=== PATIENT | male | born 1970 | race Two or more races ===

== ENCOUNTER 2020-12-06 04:03 | Inpatient (IN) | payer BC, OTHER ==
[~2020-12-06] VITALS: Ht 170.2 cm; Wt 69.4 kg
[2020-12-06 04:40] VITALS: BP 136/106
[2020-12-06] MEDS ORDERED: ENALAPRILAT 1.25 MG/ML-1ML VIAL IV ONE (04:45)
[2020-12-06] MEDS ORDERED: NITROGLYCERIN 0.4MG/HR TOPICAL PATCH TD ONE (04:45)
[2020-12-06 04:54] LABS: Basophils # (auto) 0.1 10 ^3/uL (0-0.2); Basophils % (auto) 1.1 % (0.0-2.0); Eosinophils # (auto) 0.5 10 ^3/uL (0-0.8); Hematocrit 32.5 % (41.0-53.0); Hemoglobin 10.2 g/dL (13.5-17.5); Monocytes # (auto) 0.7 10 ^3/uL (0-1.3)
[2020-12-06 04:56] LABS: Eosinophils % (auto) 3.6 % (0.0-7.0); Lymphocytes # (auto) 5.5 10 ^3/uL (0.4-5.4); Lymphocytes % (auto) 41.2 % (10.0-50.0); Mean Corpuscular Hemoglobin 26.1 pg (28.0-32.0); Mean Corpuscular Hgb Conc. 31.5 g/dL (32.0-36.0); Mean Corpuscular Volume 82.9 fL (80.0-100.0); Monocytes % (auto) 5.2 % (0.0-12.0); Neutrophils # (auto) 6.6 10 ^3/uL (1.6-8.6); Neutrophils % (auto) 48.9 % (37.0-80.0); Nucleated Red Blood Cells % 0.1 %; Platelet Count (auto) 295 10^3/uL (140-450); Red Blood Cells 3.92 10^6/uL (4.5-5.90); Red Cell Distribution Width 20.4 % (11.8-14.3); White Blood Cell 13.4 10^3/uL (4.4-10.8)
[2020-12-06 05:11] LABS: Anion Gap 8 (5-15); Blood Urea Nitrogen 32 mg/dL (7-18); Calcium 8.5 mg/dL (8.5-10.1); Carbon Dioxide 18 mmol/L (21-32); Chloride 111 mmol/L (98-107); Glucose 253 mg/dL (74-106); Magnesium 2.5 mg/dL (1.6-2.6); Potassium 5.5 mmol/L (3.5-5.1); Sodium 137 mmol/L (136-145)
[2020-12-06 05:16] LABS: Alanine Aminotransferase 24 U/L (16-61); Alkaline Phosphatase 74 U/L (45-117); Aspartate Aminotransferase 16 U/L (15-37); BUN/Creatinine Ratio 18.2; Bilirubin, Total 0.4 mg/dL (0.2-1.0); GFR African American 53 mL/min; GFR Non-African American 43 mL/min
[2020-12-06] MEDS ORDERED: SODIUM BICARBONATE 8.4 % INJ 50ML VIAL IV ONE ×2 (06:30→11:30)
[2020-12-06] MEDS ORDERED: InsuLIN REG 1unit/0.01ml Soln (100units/ml) IV ONE (06:30)
[2020-12-06] MEDS ORDERED: DEXTROSE (50%) 50ML SYRG IV ONE (06:30)
[2020-12-06] MEDS ORDERED: ACETAMINOPHEN 500 MG TAB PO PRN (09:30)
[2020-12-06] MEDS ORDERED: DEXTROSE (50%) 50ML SYRG IV PRN (09:30)
[2020-12-06] MEDS ORDERED: NITROGLYCERIN 0.4 MG SL TAB SL PRN (09:30)
[2020-12-06] MEDS ORDERED: LACTULOSE 20Gm/30ML SOLN PO PRN (09:30)
[2020-12-06] MEDS ORDERED: PROMETHAZINE HCL 25 MG/ML 1ML IV PRN (09:30)
[2020-12-06] MEDS ORDERED: MORPHINE SULF INJ 2 MG/ML SYRINGE 1ML IV PRN (09:30)
[2020-12-06] MEDS ORDERED: POTASSIUM CHL 20 Meq TABLET PO SCH (10:00)
[2020-12-06] MEDS ORDERED: FUROSEMIDE 40 MG/4 ML VIAL IV SCH (10:00)
[2020-12-06] MEDS ORDERED: ENALAPRIL MALEATE 2.5 MG TAB PO SCH (10:00)
[2020-12-06 10:19] LABS: Urine Bacteria NONE SEEN /hpf (None Seen); Urine Blood Negative /uL (Negative); Urine Specific Gravity 1.013 (1.001-1.035); Urine WBC 33 /hpf (0 - 3)
[2020-12-06] MEDS: FUROSEMIDE 40 MG/4 ML VIAL IV SCH ×2 (10:25→18:44)
[2020-12-06] MEDS: ASPirin 81 mg TAB PO SCH (10:26)
[2020-12-06] MEDS: CARVEDILOL 3.125 MG TAB PO SCH ×2 (10:26→21:58)
[2020-12-06] MEDS: ENOXAPARIN SOD 40 MG/0.4 ML SYRINGE SC SCH (10:27)
[2020-12-06] MEDS: NITROGLYCERIN 0.2MG/HR TOPICAL PATCH TD SCH (10:37)
[2020-12-06] MEDS ORDERED: cefTRIAXone 1GM/50ML D5W 50 ML IV ONE (11:00)
[2020-12-06] MEDS ORDERED: SODIUM BICARBONATE 50ML VIAL 50 ML in SOD CHL 0.45% 1,000 ML IV SCH (11:15)
[2020-12-06 11:22] LABS: Creatinine, Urine 51 mg/dL (30.0-125.0); Protein, Urine 61.4 mg/dL (0.0-11.9); Sodium Urine 57 mmol/L (40-220)
[2020-12-06] MEDS: InsuLIN REG 1unit/0.01ml Soln (100units/ml) SC SCH ×3 (11:30→21:57)
[2020-12-06] MEDS: ACCU-CHEK COMFORT CURVE STRIP VI SCH ×3 (11:30→21:57)
[2020-12-06] MEDS: SODIUM CHLOR 0.9% PF (SALINE LOCK) 10ML VIAL/SYR IV SCH ×2 (14:02→21:01)
[2020-12-06] MEDS ORDERED: TAMSULOSIN HYDROCHLORIDE 0.4 MG CAP PO ONE (16:45)
[2020-12-06] MEDS ORDERED: FLU220IH PO (17:11)
[2020-12-06] MEDS ORDERED: CARV12.544 PO (17:11)
[2020-12-06] MEDS ORDERED: MEGE20TA5 PO (17:45)
[2020-12-06] MEDS ORDERED: NIFE1TAB30 PO (17:45)
[2020-12-06] MEDS ORDERED: SEVE800T PO (17:45)
[2020-12-06] MEDS ORDERED: FURO1TAB33 PO (17:45)
[2020-12-06] MEDS ORDERED: SODI650T PO (17:45)
[2020-12-06] MEDS ORDERED: METO5TAB67 PO (17:45)
[2020-12-06] MEDS ORDERED: MIRT1TAB38 PO (17:45)
[2020-12-06] MEDS ORDERED: FUROSEMIDE 40 MG/4 ML VIAL IV ONE (20:30)
[2020-12-06] MEDS: ALBUTEROL SULF 2.5 MG/0.5ML(0.5%) NEB SOLN NEB PRN (20:38)
[2020-12-06] MEDS ORDERED: GABA100C PO (20:46)
[2020-12-06] MEDS ORDERED: TEMAZEPAM 15 MG CAP PO ONE (21:15)
[2020-12-06] MEDS: GABAPENTIN 100 MG CAP PO SCH (21:57)
[2020-12-07 05:00] VITALS: BP 97/72
[2020-12-07 05:30] LABS: Basophils # (auto) 0.1 10 ^3/uL (0-0.2); Basophils % (auto) 0.8 % (0.0-2.0); Eosinophils # (auto) 0.4 10 ^3/uL (0-0.8); Eosinophils % (auto) 6.2 % (0.0-7.0); Hematocrit 29.9 % (41.0-53.0); Hemoglobin 9.5 g/dL (13.5-17.5); Lymphocytes # (auto) 1.9 10 ^3/uL (0.4-5.4); Lymphocytes % (auto) 27.7 % (10.0-50.0); Mean Corpuscular Hemoglobin 25.8 pg (28.0-32.0); Mean Corpuscular Hgb Conc. 31.6 g/dL (32.0-36.0); Mean Corpuscular Volume 81.6 fL (80.0-100.0); Monocytes # (auto) 0.5 10 ^3/uL (0-1.3); Monocytes % (auto) 7.2 % (0.0-12.0); Neutrophils # (auto) 4.1 10 ^3/uL (1.6-8.6); Neutrophils % (auto) 58.1 % (37.0-80.0); Platelet Count (auto) 222 10^3/uL (140-450); Red Blood Cells 3.67 10^6/uL (4.5-5.90)
[2020-12-07 05:31] LABS: Red Cell Distribution Width 20.2 % (11.8-14.3)
[2020-12-07 06:04] LABS: Chloride 110 mmol/L (98-107); Potassium 4.6 mmol/L (3.5-5.1); Sodium 139 mmol/L (136-145)
[2020-12-07 06:22] LABS: Alanine Aminotransferase 21 U/L (16-61); Alkaline Phosphatase 66 U/L (45-117); Anion Gap 10 (5-15); Aspartate Aminotransferase 10 U/L (15-37); BUN/Creatinine Ratio 21.6; Bilirubin, Total 0.4 mg/dL (0.2-1.0); Blood Urea Nitrogen 38 mg/dL (7-18); Calcium 8.6 mg/dL (8.5-10.1); Carbon Dioxide 19 mmol/L (21-32); Cholesterol 151 mg/dL (< 200); GFR African American 53 mL/min; GFR Non-African American 43 mL/min; Glucose 105 mg/dL (74-106); HDL Cholesterol 29 mg/dL (40-59); LDL Cholesterol 98 mg/dL (< 100); Total Protein 7.8 g/dL (6.4-8.2); Triglycerides 166 mg/dL (< 150)
[2020-12-07] MEDS: SODIUM CHLOR 0.9% PF (SALINE LOCK) 10ML VIAL/SYR IV SCH ×3 (06:40→22:30)
[2020-12-07] MEDS: InsuLIN REG 1unit/0.01ml Soln (100units/ml) SC SCH ×2 (06:40→11:25)
[2020-12-07] MEDS: GABAPENTIN 100 MG CAP PO SCH ×3 (06:40→22:31)
[2020-12-07] MEDS: FUROSEMIDE 40 MG/4 ML VIAL IV SCH ×2 (06:40→18:39)
[2020-12-07] MEDS: ACCU-CHEK COMFORT CURVE STRIP VI SCH ×2 (06:40→11:25)
[2020-12-07 09:00] VITALS: BP 102/77
[2020-12-07] MEDS: NITROGLYCERIN 0.2MG/HR TOPICAL PATCH TD SCH (09:57)
[2020-12-07] MEDS: cefTRIAXone 1GM/50ML D5W 50 ML IV SCH (10:01)
[2020-12-07] MEDS: ENOXAPARIN SOD 40 MG/0.4 ML SYRINGE SC SCH (10:02)
[2020-12-07] MEDS: ASPirin 81 mg TAB PO SCH (10:02)
[2020-12-07] MEDS: CARVEDILOL 3.125 MG TAB PO SCH ×2 (10:02→22:31)
[2020-12-07] MEDS: ALBUTEROL SULF 2.5 MG/0.5ML(0.5%) NEB SOLN NEB PRN (11:43)
[2020-12-07 13:00] VITALS: BP 107/76
[2020-12-07] MEDS: Ensure HIGH Protein Chocolate 8oz Bottle PO SCH ×2 (16:09→17:55)
[2020-12-07 16:55] VITALS: BP 107/74
[2020-12-07 22:00] VITALS: BP 118/80
[2020-12-07] MEDS: ZOLPIDEM TARTRATE 5 MG TAB PO PRN (22:31)
[2020-12-08 05:00] VITALS: BP 109/79
[2020-12-08 05:11] LABS: Basophils # (auto) 0.1 10 ^3/uL (0-0.2); Basophils % (auto) 0.9 % (0.0-2.0); Eosinophils # (auto) 0.5 10 ^3/uL (0-0.8); Monocytes # (auto) 0.5 10 ^3/uL (0-1.3); White Blood Cell 6.1 10^3/uL (4.4-10.8)
[2020-12-08 05:14] LABS: Eosinophils % (auto) 7.5 % (0.0-7.0); Hematocrit 29.1 % (41.0-53.0); Hemoglobin 9.8 g/dL (13.5-17.5); Lymphocytes # (auto) 1.8 10 ^3/uL (0.4-5.4); Lymphocytes % (auto) 29.2 % (10.0-50.0); Mean Corpuscular Hgb Conc. 33.5 g/dL (32.0-36.0); Mean Corpuscular Volume 80.7 fL (80.0-100.0); Monocytes % (auto) 8.3 % (0.0-12.0); Neutrophils # (auto) 3.3 10 ^3/uL (1.6-8.6); Neutrophils % (auto) 54.1 % (37.0-80.0); Platelet Count (auto) 215 10^3/uL (140-450); Red Blood Cells 3.61 10^6/uL (4.5-5.90)
[2020-12-08 05:15] LABS: Red Cell Distribution Width 20.1 % (11.8-14.3)
[2020-12-08 05:23] LABS: Potassium 4.8 mmol/L (3.5-5.1)
[2020-12-08 05:29] LABS: BUN/Creatinine Ratio 26.5
[2020-12-08 05:41] LABS: INR 1.08 (0.9-1.15); Partial Thromboplastin Time 26.2 sec (23.0-31.2)
[2020-12-08] MEDS: SODIUM CHLOR 0.9% PF (SALINE LOCK) 10ML VIAL/SYR IV SCH ×3 (06:03→20:52)
[2020-12-08] MEDS: GABAPENTIN 100 MG CAP PO SCH ×3 (06:03→21:13)
[2020-12-08] MEDS: FUROSEMIDE 40 MG/4 ML VIAL IV SCH ×2 (06:03→18:49)
[2020-12-08] MEDS: Ensure HIGH Protein Chocolate 8oz Bottle PO SCH ×3 (08:14→18:09)
[2020-12-08 08:46] VITALS: BP 101/75
[2020-12-08] MEDS ORDERED: levoFLOXacin 500MG 100 ML IV ONE (09:45)
[2020-12-08] MEDS ORDERED: levoFLOXacin 500MG 100 ML IV SCH (10:00)
[2020-12-08] MEDS: NITROGLYCERIN 0.2MG/HR TOPICAL PATCH TD SCH (10:00)
[2020-12-08] MEDS: ACETYLCYSTEINE 10 %(100MG/ML) SOL 4ML NEB SCH ×4 (10:14→22:13)
[2020-12-08] MEDS: ALBUTEROL SULF 2.5 MG/0.5ML(0.5%) NEB SOLN NEB PRN ×4 (10:15→22:13)
[2020-12-08] MEDS: ASPirin 81 mg TAB PO SCH (10:29)
[2020-12-08] MEDS: POTASSIUM CHL 20 Meq TABLET PO SCH (10:29)
[2020-12-08] MEDS: cefTRIAXone 1GM/50ML D5W 50 ML IV SCH (10:29)
[2020-12-08] MEDS: ENALAPRIL MALEATE 2.5 MG TAB PO SCH (10:30)
[2020-12-08] MEDS: ENOXAPARIN SOD 40 MG/0.4 ML SYRINGE SC SCH (10:30)
[2020-12-08] MEDS: CARVEDILOL 3.125 MG TAB PO SCH ×2 (10:31→21:12)
[2020-12-08 13:00] VITALS: BP 102/76
[2020-12-08] MEDS ORDERED: TAMSULOSIN HYDROCHLORIDE 0.4 MG CAP PO ONE (14:30)
[2020-12-08 16:54] VITALS: BP 101/69
[2020-12-08 17:01] VITALS: BP 101/69
[2020-12-08] MEDS: SODIUM BICARBONATE 50ML VIAL 50 ML in SOD CHL 0.45% 1,000 ML IV SCH ×2 (17:26→20:52)
[2020-12-08] MEDS: ZOLPIDEM TARTRATE 5 MG TAB PO PRN (21:13)
[2020-12-08 22:00] VITALS: BP_SYST 100; BP_SYST 115; BP_DIAS 66; BP_DIAS 68
[2020-12-09] VITALS (7 sets, daily range): BP systolic 91–116; BP diastolic 67–85
[2020-12-09] MEDS: ACETYLCYSTEINE 10 %(100MG/ML) SOL 4ML NEB SCH ×7 (02:00→22:00)
[2020-12-09] MEDS: SODIUM BICARBONATE 50ML VIAL 50 ML in SOD CHL 0.45% 1,000 ML IV SCH ×3 (04:36→17:51)
[2020-12-09] MEDS: FUROSEMIDE 40 MG/4 ML VIAL IV SCH ×2 (05:29→17:51)
[2020-12-09] MEDS: Ensure HIGH Protein Chocolate 8oz Bottle PO SCH ×3 (05:30→18:00)
[2020-12-09] MEDS: SODIUM CHLOR 0.9% PF (SALINE LOCK) 10ML VIAL/SYR IV SCH ×3 (05:30→21:05)
[2020-12-09] MEDS: GABAPENTIN 100 MG CAP PO SCH ×3 (05:30→21:05)
[2020-12-09 05:56] LABS: Basophils # (auto) 0 10 ^3/uL (0-0.2); Basophils % (auto) 0.8 % (0.0-2.0); Eosinophils # (auto) 0.4 10 ^3/uL (0-0.8); Eosinophils % (auto) 6.9 % (0.0-7.0); Hematocrit 28.6 % (41.0-53.0); Hemoglobin 9.2 g/dL (13.5-17.5); Lymphocytes # (auto) 1.7 10 ^3/uL (0.4-5.4); Lymphocytes % (auto) 31.6 % (10.0-50.0); Mean Corpuscular Hemoglobin 27.1 pg (28.0-32.0); Mean Corpuscular Hgb Conc. 32.1 g/dL (32.0-36.0); Mean Corpuscular Volume 84.5 fL (80.0-100.0); Monocytes # (auto) 0.5 10 ^3/uL (0-1.3); Monocytes % (auto) 10.2 % (0.0-12.0); Neutrophils # (auto) 2.7 10 ^3/uL (1.6-8.6); Neutrophils % (auto) 50.5 % (37.0-80.0); Platelet Count (auto) 203 10^3/uL (140-450); Red Blood Cells 3.39 10^6/uL (4.5-5.90); White Blood Cell 5.3 10^3/uL (4.4-10.8)
[2020-12-09] MEDS: ALBUTEROL SULF 2.5 MG/0.5ML(0.5%) NEB SOLN NEB PRN ×5 (05:57→18:00)
[2020-12-09 06:20] LABS: Calcium 8.9 mg/dL (8.5-10.1); Potassium 4.5 mmol/L (3.5-5.1)
[2020-12-09 06:25] LABS: BUN/Creatinine Ratio 31.9
[2020-12-09] MEDS: ENOXAPARIN SOD 40 MG/0.4 ML SYRINGE SC SCH (10:00)
[2020-12-09] MEDS: ASPirin 81 mg TAB PO SCH (10:31)
[2020-12-09] MEDS: NITROGLYCERIN 0.2MG/HR TOPICAL PATCH TD SCH (10:49)
[2020-12-09] MEDS: CARVEDILOL 3.125 MG TAB PO SCH ×2 (10:49→21:05)
[2020-12-09] MEDS: POTASSIUM CHL 20 Meq TABLET PO SCH (10:50)
[2020-12-09] MEDS: ENALAPRIL MALEATE 2.5 MG TAB PO SCH (10:50)
[2020-12-09] MEDS ORDERED: ANGIOMAX 250 MG VIAL IV ONE (13:12)
[2020-12-09] MEDS ORDERED: fentaNYL CITRATE 100 MCG/2 ML VL ONE (13:12)
[2020-12-09] MEDS ORDERED: MIDAZOLAM HCL 1MG/1ML-2 ML VIAL ONE (13:13)
[2020-12-09] MEDS ORDERED: SODIUM CHL 0.9% 50 ML ONE (13:13)
[2020-12-09] MEDS ORDERED: IOHEXOL 350 MG/ML 100ML IJ ONE (13:13)
[2020-12-09] MEDS ORDERED: LIDOCAINE 2%HCL (LOCAL ANESTH.) INJ 20ML MDV ONE (13:13)
[2020-12-09] MEDS ORDERED: IODIXANOL 320MG/ML 100ML BTL IV ONE (14:32)
[2020-12-09] MEDS ORDERED: ASPirin 325 MG TAB ONE (14:41)
[2020-12-09] MEDS ORDERED: TICAGRELOR 90 MG TAB ONE (14:41)
[2020-12-09] MEDS: ZOLPIDEM TARTRATE 5 MG TAB PO PRN (21:05)
[2020-12-09] MEDS: TICAGRELOR 90 MG TAB PO SCH (21:45)
[2020-12-10] MEDS: ACETYLCYSTEINE 10 %(100MG/ML) SOL 4ML NEB SCH ×6 (01:35→22:36)
[2020-12-10] MEDS: ALBUTEROL SULF 2.5 MG/0.5ML(0.5%) NEB SOLN NEB PRN ×6 (01:35→22:36)
[2020-12-10] MEDS: traMADol HCL 50 MG TAB PO PRN (04:10)
[2020-12-10 05:00] VITALS: BP 90/62
[2020-12-10] MEDS: GABAPENTIN 100 MG CAP PO SCH ×3 (06:00→20:42)
[2020-12-10] MEDS: SODIUM CHLOR 0.9% PF (SALINE LOCK) 10ML VIAL/SYR IV SCH ×3 (06:00→20:37)
[2020-12-10] MEDS: FUROSEMIDE 40 MG/4 ML VIAL IV SCH ×2 (06:00→17:30)
[2020-12-10] MEDS: SODIUM BICARBONATE 50ML VIAL 50 ML in SOD CHL 0.45% 1,000 ML IV SCH ×3 (06:16→20:04)
[2020-12-10 06:41] LABS: Basophils # (auto) 0 10 ^3/uL (0-0.2); Basophils % (auto) 0.5 % (0.0-2.0); Eosinophils # (auto) 0.4 10 ^3/uL (0-0.8); Eosinophils % (auto) 5.8 % (0.0-7.0); Hematocrit 24.9 % (41.0-53.0); Hemoglobin 8.1 g/dL (13.5-17.5); Lymphocytes % (auto) 28.7 % (10.0-50.0); Mean Corpuscular Hemoglobin 26.3 pg (28.0-32.0); Mean Corpuscular Hgb Conc. 32.6 g/dL (32.0-36.0); Mean Corpuscular Volume 80.4 fL (80.0-100.0); Monocytes # (auto) 0.7 10 ^3/uL (0-1.3); Neutrophils # (auto) 3.7 10 ^3/uL (1.6-8.6); Platelet Count (auto) 230 10^3/uL (140-450); Red Cell Distribution Width 19.6 % (11.8-14.3); White Blood Cell 6.8 10^3/uL (4.4-10.8)
[2020-12-10 06:49] LABS: % Iron Saturation 26.9 % (20-55); Calcium 8.7 mg/dL (8.5-10.1); Potassium 4.4 mmol/L (3.5-5.1)
[2020-12-10 06:51] LABS: BUN/Creatinine Ratio 28.2
[2020-12-10] MEDS: Ensure HIGH Protein Chocolate 8oz Bottle PO SCH ×3 (08:30→18:25)
[2020-12-10 09:00] VITALS: BP 96/75
[2020-12-10] MEDS: TICAGRELOR 90 MG TAB PO SCH ×2 (09:56→21:37)
[2020-12-10] MEDS: CARVEDILOL 3.125 MG TAB PO SCH ×2 (09:56→20:42)
[2020-12-10] MEDS: ASPirin 81 mg TAB PO SCH (09:56)
[2020-12-10] MEDS: NITROGLYCERIN 0.2MG/HR TOPICAL PATCH TD SCH (09:57)
[2020-12-10] MEDS: POTASSIUM CHL 20 Meq TABLET PO SCH (09:57)
[2020-12-10] MEDS: ENALAPRIL MALEATE 2.5 MG TAB PO SCH (09:57)
[2020-12-10 13:00] VITALS: BP 101/68
[2020-12-10 17:00] VITALS: BP 112/84
[2020-12-10] MEDS: ZOLPIDEM TARTRATE 5 MG TAB PO PRN (20:48)
[2020-12-10 22:00] VITALS: BP 111/82
[2020-12-10] MEDS ORDERED: LINEZOLID 600MG TABLET PO ONE (22:45)
[2020-12-11] MEDS: ACETYLCYSTEINE 10 %(100MG/ML) SOL 4ML NEB SCH ×6 (02:44→22:47)
[2020-12-11] MEDS: ALBUTEROL SULF 2.5 MG/0.5ML(0.5%) NEB SOLN NEB PRN ×6 (02:44→22:48)
[2020-12-11 05:00] VITALS: BP 127/90
[2020-12-11] MEDS: FUROSEMIDE 40 MG/4 ML VIAL IV SCH ×2 (05:30→17:54)
[2020-12-11] MEDS: SODIUM CHLOR 0.9% PF (SALINE LOCK) 10ML VIAL/SYR IV SCH ×3 (05:30→21:41)
[2020-12-11] MEDS: GABAPENTIN 100 MG CAP PO SCH ×3 (05:30→21:42)
[2020-12-11 06:10] LABS: Basophils # (auto) 0 10 ^3/uL (0-0.2); Basophils % (auto) 0.8 % (0.0-2.0); Eosinophils # (auto) 0.4 10 ^3/uL (0-0.8); Eosinophils % (auto) 7.3 % (0.0-7.0); Hematocrit 28.6 % (41.0-53.0); Hemoglobin 9.4 g/dL (13.5-17.5); Lymphocytes # (auto) 1.6 10 ^3/uL (0.4-5.4); Lymphocytes % (auto) 27.8 % (10.0-50.0); Mean Corpuscular Hemoglobin 27.2 pg (28.0-32.0); Mean Corpuscular Hgb Conc. 32.7 g/dL (32.0-36.0); Mean Corpuscular Volume 83.1 fL (80.0-100.0); Monocytes # (auto) 0.6 10 ^3/uL (0-1.3); Monocytes % (auto) 10.7 % (0.0-12.0); Neutrophils % (auto) 53.4 % (37.0-80.0); Nucleated Red Blood Cells % 0.1 %; Platelet Count (auto) 215 10^3/uL (140-450); Red Blood Cells 3.44 10^6/uL (4.5-5.90); Red Cell Distribution Width 19.6 % (11.8-14.3); White Blood Cell 5.7 10^3/uL (4.4-10.8)
[2020-12-11 06:26] LABS: Calcium 8.6 mg/dL (8.5-10.1); Potassium 4.7 mmol/L (3.5-5.1)
[2020-12-11] MEDS: SODIUM BICARBONATE 50ML VIAL 50 ML in SOD CHL 0.45% 1,000 ML IV SCH ×2 (07:27→15:51)
[2020-12-11 08:59] VITALS: BP 104/78
[2020-12-11] MEDS: NITROGLYCERIN 0.2MG/HR TOPICAL PATCH TD SCH (10:00)
[2020-12-11] MEDS ORDERED: ASPI1CHW15 PO (10:41)
[2020-12-11] MEDS ORDERED: LINE1TAB6 PO (10:41)
[2020-12-11] MEDS ORDERED: ENAL2.5T7 PO (10:41)
[2020-12-11] MEDS ORDERED: LEVO750T64 PO (10:41)
[2020-12-11] MEDS ORDERED: TICA90TA PO (10:41)
[2020-12-11] MEDS: TICAGRELOR 90 MG TAB PO SCH ×2 (10:52→21:41)
[2020-12-11] MEDS: Ensure HIGH Protein Chocolate 8oz Bottle PO SCH ×3 (10:52→18:00)
[2020-12-11] MEDS: ASPirin 81 mg TAB PO SCH (10:52)
[2020-12-11] MEDS: CARVEDILOL 3.125 MG TAB PO SCH ×2 (10:53→21:41)
[2020-12-11] MEDS: POTASSIUM CHL 20 Meq TABLET PO SCH (10:53)
[2020-12-11] MEDS: ENALAPRIL MALEATE 2.5 MG TAB PO SCH (10:54)
[2020-12-11] MEDS: levoFLOXacin 750MG 150 ML IV SCH (10:55)
[2020-12-11] MEDS: LINEZOLID 600MG TABLET PO SCH ×2 (11:50→21:42)
[2020-12-11 13:00] VITALS: BP 110/71
[2020-12-11 13:35] VITALS: BP 110/71
[2020-12-11 17:00] VITALS: BP 118/78
[2020-12-11] MEDS: ZOLPIDEM TARTRATE 5 MG TAB PO PRN (21:53)
[2020-12-11 22:00] VITALS: BP 120/81
[2020-12-11] MEDS ORDERED: TEMAZEPAM 15 MG CAP PO ONE (23:15)
[2020-12-12] VITALS (7 sets, daily range): BP systolic 101–117; BP diastolic 68–85
[2020-12-12] MEDS ORDERED: SODIUM BICARBONATE 8.4 % INJ 50ML VIAL IV ONE (01:26)
[2020-12-12] MEDS: SODIUM BICARBONATE 50ML VIAL 50 ML in SOD CHL 0.45% 1,000 ML IV SCH ×3 (01:46→14:29)
[2020-12-12] MEDS: ACETYLCYSTEINE 10 %(100MG/ML) SOL 4ML NEB SCH ×6 (04:34→22:29)
[2020-12-12] MEDS: GABAPENTIN 100 MG CAP PO SCH ×3 (05:40→22:14)
[2020-12-12] MEDS: SODIUM CHLOR 0.9% PF (SALINE LOCK) 10ML VIAL/SYR IV SCH ×3 (05:40→22:25)
[2020-12-12] MEDS: FUROSEMIDE 40 MG/4 ML VIAL IV SCH ×2 (05:40→18:43)
[2020-12-12] MEDS: ALBUTEROL SULF 2.5 MG/0.5ML(0.5%) NEB SOLN NEB PRN ×5 (06:34→22:29)
[2020-12-12] MEDS: NITROGLYCERIN 0.2MG/HR TOPICAL PATCH TD SCH (10:00)
[2020-12-12] MEDS: ASPirin 81 mg TAB PO SCH (10:21)
[2020-12-12] MEDS: CARVEDILOL 3.125 MG TAB PO SCH ×3 (10:22→22:14)
[2020-12-12] MEDS: ENALAPRIL MALEATE 2.5 MG TAB PO SCH (10:23)
[2020-12-12] MEDS ORDERED: ALBU1.257 IN (10:46)
[2020-12-12] MEDS ORDERED: ALBUAER3 IN (10:46)
[2020-12-12] MEDS ORDERED: IPR002IS HHN (10:46)
[2020-12-12] MEDS: TICAGRELOR 90 MG TAB PO SCH ×2 (11:45→22:14)
[2020-12-12] MEDS: LINEZOLID 600MG TABLET PO SCH ×2 (11:45→22:14)
[2020-12-12] MEDS: POTASSIUM CHL 20 Meq TABLET PO SCH (11:45)
[2020-12-12] MEDS: Ensure HIGH Protein Chocolate 8oz Bottle PO SCH ×3 (11:46→18:44)
[2020-12-12] MEDS: ZOLPIDEM TARTRATE 5 MG TAB PO PRN (22:25)
[2020-12-13] MEDS: SODIUM BICARBONATE 50ML VIAL 50 ML in SOD CHL 0.45% 1,000 ML IV SCH ×2 (01:52→09:51)
[2020-12-13] MEDS: ACETYLCYSTEINE 10 %(100MG/ML) SOL 4ML NEB SCH ×5 (02:00→18:00)
[2020-12-13] MEDS: traMADol HCL 50 MG TAB PO PRN (04:02)
[2020-12-13 05:00] VITALS: BP 105/73
[2020-12-13] MEDS: FUROSEMIDE 40 MG/4 ML VIAL IV SCH ×2 (05:51→18:00)
[2020-12-13] MEDS: SODIUM CHLOR 0.9% PF (SALINE LOCK) 10ML VIAL/SYR IV SCH ×2 (05:52→13:54)
[2020-12-13] MEDS: GABAPENTIN 100 MG CAP PO SCH ×2 (05:52→13:53)
[2020-12-13] MEDS: ALBUTEROL SULF 2.5 MG/0.5ML(0.5%) NEB SOLN NEB PRN ×3 (07:25→14:18)
[2020-12-13] MEDS: Ensure HIGH Protein Chocolate 8oz Bottle PO SCH ×3 (08:39→18:52)
[2020-12-13 09:00] VITALS: BP 93/63
[2020-12-13] MEDS: TICAGRELOR 90 MG TAB PO SCH (09:51)
[2020-12-13] MEDS: ASPirin 81 mg TAB PO SCH (09:52)
[2020-12-13] MEDS: LINEZOLID 600MG TABLET PO SCH (09:52)
[2020-12-13] MEDS: POTASSIUM CHL 20 Meq TABLET PO SCH (09:53)
[2020-12-13] MEDS: levoFLOXacin 750MG 150 ML IV SCH (09:54)
[2020-12-13] MEDS: CARVEDILOL 3.125 MG TAB PO SCH (09:56)
[2020-12-13] MEDS: NITROGLYCERIN 0.2MG/HR TOPICAL PATCH TD SCH (09:57)
[2020-12-13] MEDS ORDERED: DIGOXIN 0.125 MG TAB PO SCH (10:00)
[2020-12-13 12:22] VITALS: BP 104/73
[2020-12-13 12:30] VITALS: BP 94/69
[2020-12-13] MEDS ORDERED: CLOP75TA28 PO (14:53)
[2020-12-13] MEDS ORDERED: ONDA-144 PO (15:33)
[2020-12-13 17:00] VITALS: BP 109/84
== END 2020-12-13 18:40 | disposition home health service (06) | DRG 175 ==
LOC: ER 04:03 → EDBD 04:06 → DOU 09:26 → TELE 11:02 → TELE-CENTR 17:06
PROVIDERS: ADMIT Internal Medicine Pulmonary Disease; ATTEND Internal Medicine Pulmonary Disease
PROC: 027034Z Dilation of Coronary Artery, One Artery with Drug-eluting Intraluminal Device, Percutaneous Approach (ICD-10-PCS; principal; 2020-12-09)
PROC: B211YZZ Fluoroscopy of Multiple Coronary Arteries using Other Contrast (ICD-10-PCS; 2020-12-09)
PROC: 02703ZZ Dilation of Coronary Artery, One Artery, Percutaneous Approach (ICD-10-PCS; 2020-12-09)
DX: I13.0 Hypertensive heart and chronic kidney disease with heart failure and stage 1 through stage 4 chronic kidney disease, or unspecified chronic kidney disease (principal); J96.01 Acute respiratory failure with hypoxia; N17.0 Acute kidney failure with tubular necrosis; J15.212 Pneumonia due to Methicillin resistant Staphylococcus aureus; E87.2 Acidosis; J47.0 Bronchiectasis with acute lower respiratory infection; E87.5 Hyperkalemia; D62 Acute posthemorrhagic anemia; J84.10 Pulmonary fibrosis, unspecified; Z20.822 Contact with and (suspected) exposure to COVID-19; I50.23 Acute on chronic systolic (congestive) heart failure; R73.9 Hyperglycemia, unspecified; N13.2 Hydronephrosis with renal and ureteral calculous obstruction; I25.5 Ischemic cardiomyopathy; N18.9 Chronic kidney disease, unspecified; Z79.51 Long term (current) use of inhaled steroids; Z79.899 Other long term (current) drug therapy; Z86.16 Personal history of COVID-19; Z87.01 Personal history of pneumonia (recurrent); Z87.442 Personal history of urinary calculi; Z87.891 Personal history of nicotine dependence
CPT/HCPCS: 36415; 36600; 71045; 71250; 74176; 76775; 80048; 80053; 80061; 81001; 82306; 82550; 82570; 82607; 82728; 82805; 82962; 83036; 83540; 83550; 83605; 83735; 83880; 84156; 84300; 84484; 85025; 85379; 85610; 85730; 86850; 86900; 86901; 87040; 87070; 87077; 87086; 87186; 87205; 87426; 92928; 93005; 93306; 93454; 93970; 94640; 94660; 96365; 96372; 96375; 97110; 97116; 97530; 99152; 99153; 99291; C1874; C1887; G0378; J0696; J1815; J1956; J2250; Q9967

== ENCOUNTER 2021-06-09 14:24 | Emergency (ER) | payer MEDICAID ==
[~2021-06-09] VITALS: Ht 175.3 cm; Wt 83.9 kg
[~2021-06-09 14:24] MED LIST: ASPI1CHW15 PO; CARV12.544 PO; CLOP75TA28 PO; ENAL2.5T7 PO; GABA300C10 PO; IPR002IS HHN; LEVO750T64 PO; MEGE40TA4 PO; METO5TAB2 PO; ONDA-188 TL; TIZA4TAB7 PO
[2021-06-09 15:07] LABS: Basophils # (auto) 0.1 10 ^3/uL (0-0.2); Basophils % (auto) 0.5 % (0.0-2.0); Eosinophils # (auto) 0.3 10 ^3/uL (0-0.8); Eosinophils % (auto) 1.5 % (0.0-7.0); Hematocrit 37.7 % (41.0-53.0); Hemoglobin 12.4 g/dL (13.5-17.5); Lymphocytes # (auto) 1.4 10 ^3/uL (0.4-5.4); Lymphocytes % (auto) 8.3 % (10.0-50.0); Mean Corpuscular Hemoglobin 27.9 pg (28.0-32.0); Mean Corpuscular Hgb Conc. 32.9 g/dL (32.0-36.0); Mean Corpuscular Volume 84.6 fL (80.0-100.0); Monocytes # (auto) 1.1 10 ^3/uL (0-1.3); Monocytes % (auto) 6.7 % (0.0-12.0); Red Blood Cells 4.46 10^6/uL (4.5-5.90); Red Cell Distribution Width 13.2 % (11.8-14.3); White Blood Cell 16.8 10^3/uL (4.4-10.8)
[2021-06-09 16:30] LABS: Albumin 3.6 g/dL (3.4-5.0); BUN/Creatinine Ratio 19.8; Bilirubin, Total 0.8 mg/dL (0.2-1.0); Calcium 8.4 mg/dL (8.5-10.1); Potassium 4.4 mmol/L (3.5-5.1); Total Protein 7.2 g/dL (6.4-8.2)
[2021-06-09 17:15] LABS: CRP High Sensitivity 8.65 mg/dL (< 0.3)
[2021-06-09 18:07] VITALS: BP 122/88
== END 2021-06-09 18:10 | disposition home or self-care (01) ==
LOC: EDBD 14:24 → ER 14:24
DX: I11.0 Hypertensive heart disease with heart failure (principal); I50.43 Acute on chronic combined systolic (congestive) and diastolic (congestive) heart failure; E78.5 Hyperlipidemia, unspecified; Z20.822 Contact with and (suspected) exposure to COVID-19
CPT/HCPCS: 36415; 71045; 80053; 82728; 85025; 86141; 87426; 93005

== ENCOUNTER 2025-05-02 10:02 | Inpatient (IN) | payer MEDICARE, MEDICAID ==
[~2025-05-02] VITALS: Ht 175.3 cm; Wt 50.9 kg
[~2025-05-02 10:02] MED LIST changes: +ASPI-736 PO; -ASPI1CHW15 PO; +ENAL1TAB42 PO; -ENAL2.5T7 PO; +GABA-1250 PO; -GABA300C10 PO; +LEVO750T40 PO; -LEVO750T64 PO; +TIZA-142 PO; -TIZA4TAB7 PO
--- NOTE | 2025-05-02 10:46 | ED.PDOC ---
General HPI Comments 54-year-old male who presents to the ED for chief complaint of flank pain. Patient states he has been having right sided flank pain for the past three days. Patient states the pain radiates to the right lower quadrant, patient is constant, aching and nature with no associated exacerbating or relieving factors. Patient has associated dysuria but otherwise denies any other symptoms. Patient states he does have history of kidney stone in the past. Patient vitals otherwise stable in the ED. Chief Complaint: Flank Pain Time Seen by MD: 10:44 Reviewed notes: Medications, Allergies Allergies: Coded Allergies: Ibuprofen (Unverified Allergy, Unknown, 01/08/21) Information Source: Patient, Spouse Mode of Arrival: Ambulatory Brought in by: Spouse Past Medical History PAST MEDICAL HISTORY: Denies Surgical History: Denies all surgeries Family History Family History: Reviewed,noncontributory to illness Social History Smoker: Non-Smoker Alcohol: Denies ETOH Use Drugs: Denies Drug Use Lives In: Home Constitutional: denies: chills, diaphoresis, fatigue, fever, malaise, sweats, weakness, others EENTM: denies: blurred vision, double vision, ear bleeding, ear discharge, ear drainage, ear pain, ear ringing, eye pain, eye redness, hearing loss, mouth pain, mouth swelling, nasal discharge, nose bleeding, nose congestion, nose pain, photophobia, tearing, throat pain, throat swelling, voice changes, others Respiratory: denies: cough, hemoptysis, orthopnea, SOB at rest, shortness of breath, SOB with excertion, stridor, wheezing, others Cardiovascular: denies: chest pain, dizzy spells, diaphoresis, Dyspnea on exertion, edema, irregular heart beat, left arm pain, lightheadedness, palpitations, PND, syncope, others Gastrointestinal: reports: abdominal pain; denies: abdomen distended, blood streaked bowels, constipated, diarrhea, dysphagia, difficulty swallowing, hematemesis, melena, nausea, poor appetite, poor fluid intake, rectal bleeding, rectal pain, vomiting, others Genitourinary: reports: flank pain; denies: burning, dysuria, frequency, hematuria, incontinence, penile discharge, penile sore, pain, testicle pain, testicle swelling, urgency, others Neurological: denies: dizziness, fainting, headache, left sided numbness, left sided weakness, numbness, paresthesia, pre-existing deficit, right sided numbness, right sided weakness, seizure, speech problems, tingling, tremors, weakness, others Musculoskeletal: denies: back pain, gout, joint pain, joint swelling, muscle pain, muscle stiffness, neck pain, others Integumetry: denies: bruises, change in color, change in hair/nails, dryness, laceration, lesions, lumps, rash, wounds, others Allergic/Immunocompromised: denies: Difficulty Healing, Frequent Infections, Hives, Itching, others Hematologic/Lymphatic: denies: anemia, blood clots, easy bleeding, easy bruising, swollen glands, others Endocrine: denies: excessive hunger, excessive sweating, excessive thirst, excessive urination, flushing, intolerance to cold, intolerance to heat, unexplained weight gain, unexplained weight loss, others Psychiatric: denies: anxiety, bipolar disorder, depression, hopeless, panic disorder, schizophrenia, sleepless, suicidal, others All Other Systems: Reviewed and Negative Physical Exam General Appearance: Moderate Distress HEENT: Normal ENT Inspection, Pharynx Normal, TMs Normal Neck: Full Range of Motion, Non-Tender, Normal, Normal Inspection Respiratory: Chest Non-Tender, Lungs Clear, No Accessory Muscle Use, No Respir atory Distress, Normal Breath Sounds Cardiovascular: No Edema, No JVD, No Murmur, No Gallop, Normal Peripheral Pulses, Regular Rate/Rhythm Breast Exam: Deferred Gastrointestinal: Distended, No Organomegaly, No Pulsatile Mass, Normal Bowel Sounds, Soft Genitalia: Deferred Pelvic: Deferred Rectal: Deferred Extremities: No calf tenderness, Normal capillary refill, Normal inspection, Normal range of motion, Non-tender, No pedal edema Musculoskeletal : Apperance: Normal Neurologic: Alert, sandblast carver II-XII nml as Tested, No Motor Deficits, Normal Affect, Normal Mood, No Sensory Deficits Cerebellar Function: Normal Reflexes: Normal Skin: Dry, Normal Color, Warm Peripheral Pulses: 3+ Radial (R), 3+ Radial (L) Lymphatic: No Adenopathy Was a procedure done? Was a procedure done?: No Differential Diagnosis Kidney stone (Female): Musculoskeletal pain, Urinary obstruction, Urolithiasis Kidney stone (Male): Pyelonephritis, Strain, Urolithiasis, Urinary tract infection Urinary Problem (Male): Urethritis, UTI Other Differential Diagnosis Gallstones, biliary colic, X-Ray, Labs, Meds, VS Vital Signs Date Time Temp Pulse Resp B/P (MAP) Pulse Ox O2 Delivery O2 Flow Rate FiO2 05/02/25 12:39 72 20 126/64 05/02/25 11:41 62 18 129/84 05/02/25 11:35 62 18 97 Room Air 05/02/25 11:35 98.0 62 18 129/84 (99) 97 98.0 05/02/25 10:03 97.3 79 15 123/78 96 97.3 Lab Test 05/02/25 11:49 05/02/25 11:03 Range/Units Urine Color Light-yellow Yellow Urine Clarity Clear Clear Urine pH 6.0 5.0-9.0 Urine Specific [place] 1.018 1.001-1.035 Urine Protein Trace H Negative Urine Ketones Negative Negative Urine Blood 1+ H Negative /uL Urine Nitrite Negative Negative Urine Bilirubin Negative Negative Urine Urobilinogen Normal Negative mg/dL Urine Leukocyte Esterase Trace Negative /uL Urine RBC 4 0 - 3 /hpf Urine Microscopic WBC 26 H 0-3 /HPF Urine Squamous Epithelial Cells Few <5 /hpf Urine Bacteria None seen None Seen /hpf Urine Glucose 4+ H Normal mg/dL White Blood Count 10.3 4.4-10.8 10^3/uL Red Blood Count 5.07 4.5-5.90 10^6/uL Hemoglobin 14.6 13.5-17.5 g/dL Hematocrit 44.7 41.0-53.0 % Mean Corpuscular Volume 88.0 80.0-100.0 fL Mean Corpuscular Hemoglobin 28.7 28.0-32.0 pg Mean Corpuscular Hemoglobin Concent 32.6 32.0-36.0 g/dL Red Cell Distribution Width 13.9 11.8-14.3 % Platelet Count 188 140-450 10^3/uL Mean Platelet Volume 8.5 6.9-10.8 fL Neutrophils (%) (Auto) 84.0 H 37.0-80.0 % Lymphocytes (%) (Auto) 7.8 L 10.0-50.0 % Monocytes (%) (Auto) 4.9 0.0-12.0 % Eosinophils (%) (Auto) 2.8 0.0-7.0 % Basophils (%) (Auto) 0.5 0.0-2.0 % Neutrophils # (Auto) 8.7 H 1.6-8.6 10 ^3/uL Lymphocytes # (Auto) 0.8 0.4-5.4 10 ^3/uL Monocytes # (Auto) 0.5 0-1.3 10 ^3/uL Eosinophils # (Auto) 0.3 0-0.8 10 ^3/uL Basophils # (Auto) 0 0-0.2 10 ^3/uL Nucleated Red Blood Cells 0.0 % Sodium Level 142 136-145 mmol/L Potassium Level 4.4 3.5-5.1 mmol/L Chloride Level 107 98-107 mmol/L Carbon Dioxide Level 26 20-31 mmol/L Anion Gap 9 5-15 Blood Urea Nitrogen 25 H 9-23 mg/dL Creatinine 1.84 H 0.700-1.30 mg/dL Glomerular Filtration Rate Calc 43 >90 mL/min BUN/Creatinine Ratio 13.6 10.0-20.0 Serum Glucose 233 H 74-106 mg/dL Calcium Level 9.3 8.7-10.4 mg/dL Total Bilirubin 0.8 0.2-1.0 mg/dL Aspartate Amino Transferase (AST) 17 13-40 U/L Alanine Aminotransferase (ALT) 14 7-40 U/L Alkaline Phosphatase 84 46-116 U/L Total Protein 7.8 5.7-8.2 g/dL Albumin 4.2 3.2-4.8 g/dL Current Medications Medications (Trade) Dose Ordered Sig/Andi Route Start Time Stop Time Status Last Admin Ondansetron HCl (Zofran) 4 mg ONCE ONCE IV 05/02/25 11:00 05/02/25 11:01 DC 05/02/25 11:40 Sodium Chloride 1,000 ml @ 1,000 mls/hr Q1H ONCE IVB 05/02/25 11:00 05/02/25 11:59 DC 05/02/25 11:31 Morphine Sulfate 2 mg ONCE ONCE IV 05/02/25 11:00 05/02/25 11:01 DC 05/02/25 11:41 Patient alert. Came in because of abdominal pain. On examination abdomen is distended. Vitals stable. WBC within normal limits. Hemoglobin within normal limits. Has risk factors. Establish intravenous access. Was given fluids. Was given Zofran. CT scan of the abdomen reviewed does show obstructing kidney stone. Was given Flomax. Urology consultation. Explained to the patient. Continue monitoring. Time of 1ST Reevaluation: 11:15 Reevaluation 1ST: Unchanged Patient Education/Counseling: Diagnosis, Treatment Family Education/Counseling: Diagnosis, Treatment SEPSIS Sepsis Screen Date sepsis recognized/suspect: May 02, 2025 Time Sepsis recognized/suspect: 1006 Recent Procedure: No On Antibiotic Therapy: No Respiratory Rate >20: No Heart Rate >90: No Temp<36 C (96.8 F) or >38.3 C: No SBP <90 or MAP <65 mmHG: No New Acute Mental Status Change: No Is the patient on CPAP, BIPAP,: No Physician Orders Ct Ab Pel Wo Con-No Oral Or Iv (05/02/25 10:49) Tamsulosin Hydrochloride (Flomax) (05/02/25 12:45) Vital Signs Date Time Temp Pulse Resp B/P (MAP) Pulse Ox O2 Delivery O2 Flow Rate FiO2 05/02/25 12:39 72 20 126/64 05/02/25 11:41 62 18 129/84 05/02/25 11:35 62 18 97 Room Air 05/02/25 11:35 98.0 62 18 129/84 (99) 97 98.0 05/02/25 10:03 97.3 79 15 123/78 96 97.3 Laboratory Tests Test 05/02/25 11:03 White Blood Count 10.3 10^3/uL (4.4-10.8) Medications Medications Dose Ordered Sig/Andi Route Start Time Stop Time Status Last Admin Dose Admin Morphine Sulfate 2 mg ONCE ONCE IV 05/02/25 11:00 05/02/25 11:01 DC 05/02/25 11:41 Ondansetron HCl 4 mg ONCE ONCE IV 05/02/25 11:00 05/02/25 11:01 DC 05/02/25 11:40 Sodium Chloride 1,000 ml @ 1,000 mls/hr Q1H ONCE IVB 05/02/25 11:00 05/02/25 11:59 DC 05/02/25 11:31 Departure 1 Departure Time of Disposition: 12:20 Impression: Primary Impression: Acute abdominal pain Additional Impression: Kidney stone Disposition: ADMITTED INPATIENT Admit to: Med Surg Condition: Guarded Critical Care Note Critical Care Time?: No Stability Stability form required: No Heart Score Heart Score: Heart Score Response (Comments) Value History N/A 0 EKG N/A 0 Age N/A 0 Risk Factors N/A 0 Troponin N/A 0 Total 0 I personally scribed for ANA PIRES MD ([email or web address]) on 05/02/25 at 10:46. Electronically submitted by Hema Manuel ([facility]). ANA PIRES MD May 02, 2025 10:46
--- NOTE | 2025-05-02 11:25 | DVH ---
Exam: CT CT AB PEL WO CON-NO ORAL OR IV History: colitis. Pain. Comparison Study: None Technique: Multidetector spiral CT of the abdomen was performed from lung bases to pubic symphysis. I maging was performed without IV contrast. Axial, coronal and sagittal multiplanar reformats were obta ined from the axial data set by the technologist. Radiation Dose : 1. Abdomen/Pelvis: CTDIvol 14.09 mGy, DLP 890.72 mGy*cm. Findings: Evaluation of solid organs is limited due to lack of intravenous contrast use. Lung Bases: No acute or significant lung base finding. Normal heart size. No pleural or pericardial effusion. Liver: The liver is normal in size. No focal lesions. Gallbladder and Biliary Tree: Cholelithiasis noted without secondary findings of cholecystitis or willie iary obstruction. Spleen: Unremarkable Pancreas: The pancreas is grossly normal in appearance. Adrenal Glands: Unremarkable Kidneys: Obstructing distal right ureteric calculus just proximal to the UVJ measuring 6 mm resulting in [id number] hydronephrosis and hydroureter. Bladder: Grossly unremarkable for degree of distention. Bowel: The stomach is grossly normal in appearance. Small bowel and colon are normal in caliber and d istribution. The appendix is not visualized; however, no secondary findings of acute appendicitis rama ntified. Ascites: Absent Lymphadenopathy: No mesenteric, retroperitoneal or periportal lymphadenopathy. Abdominal Wall and Mesentery: Unremarkable. Vasculature: The visualized abdominal aorta is normal in size and caliber. Evaluation of abdominal a nd pelvic vessels is limited due to lack of intravenous contrast. Pelvic Organs: Unremarkable Musculoskeletal: No aggressive focal bony lesions, acute fractures or dislocation. IMPRESSION: Obstructing distal right ureteric calculus measuring 6 mm resulting in mild to moderate hydronephrosi s and hydroureter. Radiation optimization: All CT scans at this facility use at least one of these dose optimization fior hniques: automated exposure control mA and/or kV adjustment per patient size (includes targeted exam s where dose is matched to clinical indication) or iterative reconstruction.
[2025-05-02 11:28] LABS: Hematocrit 44.7 % (41.0-53.0); Hemoglobin 14.6 g/dL (13.5-17.5); Mean Corpuscular Hemoglobin 28.7 pg (28.0-32.0); Mean Corpuscular Volume 88.0 fL (80.0-100.0); Nucleated Red Blood Cells % 0.0 %
[2025-05-02] MEDS: SODIUM CHLORIDE 0.9% 1,000 ML IVB ONE (11:31)
[2025-05-02] MEDS: ONDANSETRON HCL 4 MG/2 ML VIAL IV ONE (11:40)
[2025-05-02] MEDS: MORPHINE SULFATE INJ 2 MG/ml SYRG IV ONE (11:41)
[2025-05-02 11:46] LABS: Alanine Aminotransferase 14 U/L (7-40); Albumin 4.2 g/dL (3.2-4.8); Alkaline Phosphatase 84 U/L (46-116); Anion Gap 9 (5-15); BUN/Creatinine Ratio 13.6 (10.0-20.0); Calcium 9.3 mg/dL (8.7-10.4); Carbon Dioxide 26 mmol/L (20-31); Potassium 4.4 mmol/L (3.5-5.1); Sodium 142 mmol/L (136-145); Total Protein 7.8 g/dL (5.7-8.2)
[2025-05-02 11:47] LABS: Bilirubin, Total 0.8 mg/dL (0.2-1.0)
[2025-05-02 11:50] LABS: Blood Urea Nitrogen 25 mg/dL (9-23); Chloride 107 mmol/L (98-107); Glucose 233 mg/dL (74-106)
[2025-05-02 12:42] LABS: Urine Protein, UAD TRACE (Negative)
[2025-05-02] MEDS: TAMSULOSIN HYDROCHLORIDE 0.4 MG CAP PO ONE (13:10)
[2025-05-02] MEDS: KETOROLAC TROMETH 30 MG/ML 1ML VIAL IV ONE (13:14)
--- NOTE | 2025-05-02 14:21 | DVHHPRES ---
History of Present Illness Resident Creating Document: FRACISCO MURPHY RESIDENT History of Present Illness Babak Eaton is a 54-year old male with past medical history of hypertension, CKD who presented to the ER with the chief complaint of right-sided back pain and right-sided abdominal pain. Patient mentions he has had the pain for the last 3 days, on and off, describes it as sharp, 8/10 in intensity, not relieved with pain medication. Pain was associated with nausea and 1 episode of vomiting 2 days back. The patient also had decreased urine output and increased frequency and urgency, but no burning or pain with micturition. Patient also mentions he has a history of kidney stones multiple times in the past. CT abdomen was done which showed Obstructing distal right ureteric calculus measuring 6 mm resulting in mild to moderate hydronephrosis and hydroureter. Past medical history: CKD, hypertension, pacemaker placement, PCI with 2 stents, CKD Past surgical history: Pacemaker placement 4 years ago, PCI with 2 stents placed 4 years ago Social & Personal history: Lives at home with family Smoking: Denies Alcohol: Remote history of occasional consumption Drugs: Denies Allergies: Ibuprofen Cardiovascular: CAD, HTN, [place] Renal/: Chronic renal failure, UTI Smoke: No ALCOHOL: none Drugs: None Lives: with Family Review of Systems Review of Systems Patient seen and examined at bedside. Patient is alert and oriented to time, place person and responding to all questions. Eyes: No Pain, No Vision change, No Conjunctivae inflammation, No Eyelid inflammation, No Redness ENT: No Ear pain, No Ear discharge, No Nose pain, No Nose discharge, No Nose congestion, No Mouth pain, No Mouth swelling, No Throat pain, No Throat swelling Cardiovascular: No Chest Pain, No Palpitations, No Orthopnea, No Paroxysmal No Dyspnea, No Edema, No Lt Headedness Respiratory: No Cough, No Dry, No Shortness of breath, No SOB with exertion, No Wheezing, No Hemoptysis, No Pleuritic Pain, No Sputum Gastrointestinal: No Nausea, No Vomiting, No Abdominal Pain, No Diarrhea, No Constipation, No Melena, No Hematochezia Genitourinary: No Dysuria, No Frequency, No Incontinence, No Hematuria, No Retention Allergies: Coded Allergies: Ibuprofen (Unverified Allergy, Unknown, 01/08/21) Exam Vital Signs Vital Signs Date Time Temp Pulse Resp B/P (MAP) Pulse Ox O2 Delivery O2 Flow Rate FiO2 05/02/25 12:39 72 20 126/64 05/02/25 11:35 97 Room Air 05/02/25 11:35 98.0 98.0 Exam General Appearance: Cooperative. Well developed. Well nourished. NAD Head Exam: Normal inspection Neck Exam: Normal inspection. Non-tender. Normal alignment Pulmonary/Respiratory: Chest non-tender. Clear bilateral breath sounds, no crackles, no wheezing. Cardiovascular/Chest: Regular rate and rhythm. No murmurs. No JVD. Peripheral Pulses: 2+ Radial (R). 2+ Radial (L). 2+ Pedal (R). 2+ Pedal (L) Abdominal Exam: Normal bowel sounds. Soft. normal abdomen, no visible veins, mild tenderness in right flank , No hepatospenomegaly. No masses Ankle Exam: Negative ankle edema Lower extremities: Negative lower extremity edema Neuro/Mental Status: A&O x4. Coherent. Thoughts/Psych: Normal thought pattern. Appropriate mood and affect. Good judgement and insight Skin Exam: Normal inspection. Normal color. Warm. Dry Labs/Xrays Labs Test 05/02/25 11:49 05/02/25 11:03 Range/Units Urine Color Light-yellow Yellow Urine Clarity Clear Clear Urine pH 6.0 5.0-9.0 Urine Specific [place] 1.018 1.001-1.035 Urine Protein Trace H Negative Urine Ketones Negative Negative Urine Blood 1+ H Negative /uL Urine Nitrite Negative Negative Urine Bilirubin Negative Negative Urine Urobilinogen Normal Negative mg/dL Urine Leukocyte Esterase Trace Negative /uL Urine RBC 4 0 - 3 /hpf Urine Microscopic WBC 26 H 0-3 /HPF Urine Squamous Epithelial Cells Few <5 /hpf Urine Bacteria None seen None Seen /hpf Urine Glucose 4+ H Normal mg/dL White Blood Count 10.3 4.4-10.8 10^3/uL Red Blood Count 5.07 4.5-5.90 10^6/uL Hemoglobin 14.6 13.5-17.5 g/dL Hematocrit 44.7 41.0-53.0 % Mean Corpuscular Volume 88.0 80.0-100.0 fL Mean Corpuscular Hemoglobin 28.7 28.0-32.0 pg Mean Corpuscular Hemoglobin Concent 32.6 32.0-36.0 g/dL Red Cell Distribution Width 13.9 11.8-14.3 % Platelet Count 188 140-450 10^3/uL Mean Platelet Volume 8.5 6.9-10.8 fL Neutrophils (%) (Auto) 84.0 H 37.0-80.0 % Lymphocytes (%) (Auto) 7.8 L 10.0-50.0 % Monocytes (%) (Auto) 4.9 0.0-12.0 % Eosinophils (%) (Auto) 2.8 0.0-7.0 % Basophils (%) (Auto) 0.5 0.0-2.0 % Neutrophils # (Auto) 8.7 H 1.6-8.6 10 ^3/uL Lymphocytes # (Auto) 0.8 0.4-5.4 10 ^3/uL Monocytes # (Auto) 0.5 0-1.3 10 ^3/uL Eosinophils # (Auto) 0.3 0-0.8 10 ^3/uL Basophils # (Auto) 0 0-0.2 10 ^3/uL Nucleated Red Blood Cells 0.0 % Sodium Level 142 136-145 mmol/L Potassium Level 4.4 3.5-5.1 mmol/L Chloride Level 107 98-107 mmol/L Carbon Dioxide Level 26 20-31 mmol/L Anion Gap 9 5-15 Blood Urea Nitrogen 25 H 9-23 mg/dL Creatinine 1.84 H 0.700-1.30 mg/dL Glomerular Filtration Rate Calc 43 >90 mL/min BUN/Creatinine Ratio 13.6 10.0-20.0 Serum Glucose 233 H 74-106 mg/dL Calcium Level 9.3 8.7-10.4 mg/dL Total Bilirubin 0.8 0.2-1.0 mg/dL Aspartate Amino Transferase (AST) 17 13-40 U/L Alanine Aminotransferase (ALT) 14 7-40 U/L Alkaline Phosphatase 84 46-116 U/L Total Protein 7.8 5.7-8.2 g/dL Albumin 4.2 3.2-4.8 g/dL SEPSIS Sepsis Screen Date sepsis recognized/suspect: May 02, 2025 Time Sepsis recognized/suspect: 1006 Recent Procedure: No On Antibiotic Therapy: No Respiratory Rate >20: No Heart Rate >90: No Temp<36 C (96.8 F) or >38.3 C: No SBP <90 or MAP <65 mmHG: No New Acute Mental Status Change: No Is the patient on CPAP, BIPAP,: No Physician Orders Ct Ab Pel Wo Con-No Oral Or Iv (05/02/25 10:49) Admit (05/02/25 14:08) Allergies (05/02/25 14:08) Code Status (05/02/25 14:08) Ondansetron Hcl (Zofran) (05/02/25 14:15) Complete Blood Count (05/03/25 04:00) Comprehensive Metabolic Panel (05/03/25 04:00) Npo (Nothing By Mouth) Diet (05/02/25 Dinner) Condition: Unstable (05/02/25 14:08) Enoxaparin Sodium (Lovenox) (05/03/25 10:00) Acetaminophen Tablet (Tylenol Tablet) (05/02/25 14:15) Chest Xray 1 View (05/02/25 14:14) Drug Screen (05/02/25 14:14) Hemoglobin A1c (05/02/25 14:14) Thyroid Stimulating Hormone (05/02/25 14:14) * Urology Consult (05/02/25 14:16) Ceftriaxone 1gm/50ml (Rocephin) (05/03/25 09:00) B-Type Natriuretic Peptide (05/02/25 14:17) Ceftriaxone 1gm/50ml (Rocephin) (05/02/25 14:30) Sodium Chloride 0.9% (05/02/25 14:30) Tamsulosin Hydrochloride (Flomax) (05/02/25 18:00) Vital Signs Date Time Temp Pulse Resp B/P (MAP) Pulse Ox O2 Delivery O2 Flow Rate FiO2 05/02/25 12:39 72 20 126/64 05/02/25 11:41 62 18 129/84 05/02/25 11:35 62 18 97 Room Air 05/02/25 11:35 98.0 62 18 129/84 (99) 97 98.0 05/02/25 10:03 97.3 79 15 123/78 96 97.3 Laboratory Tests Test 05/02/25 11:03 White Blood Count 10.3 10^3/uL (4.4-10.8) Medications Medications Dose Ordered Sig/Andi Route Start Time Stop Time Status Last Admin Dose Admin Ketorolac Tromethamine 30 mg ONCE ONCE IV 05/02/25 12:45 05/02/25 12:46 DC 05/02/25 13:14 30 MG Morphine Sulfate 2 mg ONCE ONCE IV 05/02/25 11:00 05/02/25 11:01 DC 05/02/25 11:41 2 MG Ondansetron HCl 4 mg ONCE ONCE IV 05/02/25 11:00 05/02/25 11:01 DC 05/02/25 11:40 4 MG Sodium Chloride 1,000 ml @ 1,000 mls/hr Q1H ONCE IVB 05/02/25 11:00 05/02/25 11:59 DC 05/02/25 11:31 1,000 MLS/HR Tamsulosin HCl 0.4 mg ONCE ONCE PO 05/02/25 12:45 05/02/25 12:46 DC 05/02/25 13:10 0.4 MG Assessment/Plan Assessment/Plan Acute urinary obstruction with hydronephrosis, likely due to ureteric calculus Acute right flank pain, likely due to above Acute UTI -CT abdomen showed Obstructing distal right ureteric calculus measuring 6 mm resulting in mild to moderate hydronephrosis and hydroureter. -IV fluids at 75ml/hr -urology consult placed -ceftriaxone 1gm iv daily -tamsulosin 0.4mg po qpm ERICA on CKD, stage III -creatinine today is -continue IV fluids -avoid nephrotoxic agents -monitor BNP Prediabetes, with HbA1c 6.3 -patient counselled extensively on healthy lifestyle modifications and diet control -monitor PUD prophylaxis: Protonix 40 mg IV daily DVT prophylaxis: Not indicated Goals of care: Full code, discussed for >23 minutes Plan discussed with patient Plan discussed with Dr Bosch Plan discussed with: Patient, Spouse My Orders Orders - FRACISCO MURPHY RESIDENT Procedure Category Date Status Time Admit ADMIT 05/02/25 Transmitted 14:08 Allergies NELLIE 05/02/25 In Process 14:08 Code Status CODE 05/02/25 Transmitted 14:08 Ondansetron Hcl PHA 05/02/25 Logged (Zofran) 14:15 Complete Blood Count LAB 05/03/25 Verified 04:00 Comprehensive LAB 05/03/25 Verified Metabolic Panel 04:00 Npo (Nothing By DIET 05/02/25 Transmitted Mouth) Diet Dinner Condition: Unstable NELLIE 05/02/25 In Process 14:08 Enoxaparin Sodium PHA 05/03/25 Logged (Lovenox) 10:00 Acetaminophen Tablet PHA 05/02/25 Logged (Tylenol Tablet) 14:15 Chest Xray 1 View XY 05/02/25 Logged 14:14 Drug Screen LAB 05/02/25 Logged 14:14 Hemoglobin A1c LAB 05/02/25 Logged 14:14 Thyroid Stimulating LAB 05/02/25 Logged Hormone 14:14 * Urology Consult CONS 05/02/25 Transmitted 14:16 Ceftriaxone 1gm/50ml PHA 05/03/25 Logged (Rocephin) 09:00 B-Type Natriuretic LAB 05/02/25 Logged Peptide 14:17 Ceftriaxone 1gm/50ml PHA 05/02/25 Logged (Rocephin) 14:30 Sodium Chloride 0.9% PHA 05/02/25 Logged 14:30 Tamsulosin PHA 05/02/25 Logged Hydrochloride (Flomax) 18:00 Date of Service: May 02, 2025 Billing Provider: KACY BOSCH MD Common Visit Codes: 59824-USEHWNS INP/OBS CARE (HIGH) Secondary Visit Codes: 02206-[id number] CARE PLAN 30 MINUTES FRACISCO MURPHY RESIDENT May 02, 2025 14:21 KACY BOSCH MD May 02, 2025 22:56
[2025-05-02] MEDS: SODIUM CHLORIDE 0.9% 1,000 ML IV SCH (14:30)
--- NOTE | 2025-05-02 14:58 | DVH ---
EXAM: XY CHEST XRAY 1 VIEW Indication: sob Technique: Single frontal view of the chest was obtained Comparison: CHEST PORTABLE on DOS: 01/08/21 FINDINGS: Lines and Tubes: Cardiac pacemaker projects over left chest wall. Lungs: No focal consolidation. Pleura: No effusion. No pneumothorax. Cardiomediastinal contours: Unremarkable Bones: No acute osseous abnormality. IMPRESSION: No acute cardiopulmonary disease.
[2025-05-02] MEDS ORDERED: SODIUM CHLORIDE 0.9% 1,000 ML IV ONE (15:15)
[2025-05-02] MEDS: SODIUM CHLORIDE 0.9% 1,000 ML IV ONE (15:34)
--- NOTE | 2025-05-02 18:27 | DVHINCON2 ---
Date of service: May 02, 2025 Referring Physician Hospitalist Reason for Consultation ureteral stone History of Present Illness History Source: Patient, RN Notes, MD Notes Exam Limitations: No limitations HPI 54-year old male with past medical history of hypertension, CKD who presented to the ER with the chief complaint of right-sided back pain and right-sided abdomi nal pain. Patient mentions he has had the pain for the last 3 days, on and off, describes it as sharp, 8/10 in intensity, not relieved with pain medication. Pain was associated with nausea and 1 episode of vomiting 2 days back. The patient also had decreased urine output and increased frequency and urgency, but no burning or pain with micturition. Patient also mentions he has a history of kidney stones multiple times in the past. CT abdomen was done which showed Obstructing distal right ureteric calculus measuring 6 mm resulting in mild to moderate hydronephrosis and hydroureter. Past medical history: CKD, hypertension, pacemaker placement, PCI with 2 stents, CKD Past surgical history: Pacemaker placement 4 years ago, PCI with 2 stents placed 4 years ago Social & Personal history: Lives at home with family Smoking: Denies Alcohol: Remote history of occasional consumption Drugs: Denies Home Meds Reported Medications Aspirin (Aspirin) 325 Mg Tab, 81 MG PO DAILY for 30 Days, MG 05/03/25 Sacubitril-Valsartan (Entresto 97-103 mg) 1 Tab Tab, 1 TAB PO BID, TAB 05/03/25 Cetirizine HCl (Cetirizine HCl) 1 Mg/Ml Syp, 10 MG PO, SYP 05/03/25 Clopidogrel Bisulfate (CLOPIDOGREL) 75 Mg Tab, 75 MG PO DAILY for 30 Days, MG 05/03/25 Atorvastatin Calcium (Lipitor) 20 Mg Tab, 1 TAB PO DAILY, #90 TAB 1 Refill 05/03/25 Allopurinol (Allopurinol) 100 Mg Tab, 100 MG PO DAILY for 30 Days, MG 05/03/25 Dapagliflozin Propanediol (Farxiga) 10 Mg Tab, 10 MG PO, TAB 05/03/25 Bempedoic Acid (Nexletol) 180 Mg Tab, 180 MG PO, TAB 05/03/25 Carvedilol (Carvedilol) 12.5 Mg Tab, 12.5 MG PO Q12HR for 30 Days, MG 05/03/25 Gabapentin (Gabapentin) 300 Mg Cap, 300 MG PO for 30 Days, MG 05/03/25 Past Medical History Cardiac: CAD Past Surgical History: Pacemaker, PTCA Smoker: No Hx (Negative) Alocohol: None Drugs: None Domestic Violence: Neg Review of Systems Gastrointestinal: Abdominal Pain Genitourinary: Pain H&P Exam Vital Signs Vital Signs Date Time Temp Pulse Resp B/P (MAP) Pulse Ox O2 Delivery O2 Flow Rate FiO2 05/02/25 14:20 97.9 79 18 135/52 (79) 98 97.9 05/02/25 11:35 Room Air General Appeara: Well developed, Well nourished, Normal Appearance Eye contact/ Speech: Cooperative, Good eye contact, Normal speech Skin Exam: Normal inspection, Normal color, Warm/dry Labs/Xrays [place] [address] Ph: [phone] DIAGNOSTIC IMAGING Diagnostic Imaging Report : [id number] Signed PATIENT: VANIA ZUNIGA ACCT: [id number] UNIT: [id number] : 1970 LOC: ER ROOM / BED: / AGE / SEX: 54 / M ADM STATUS: REG ER SERVICE 1049 ORDERING PHYSICIAN: ANA PIRES MD PROCEDURE(s): ABPL - CT AB PEL WO CON-NO ORAL OR IV REASON: colitis ORDER NUMBER(s): [id number], ACCESSION NUMBER(s): [id number] Exam: CT CT AB PEL WO CON-NO ORAL OR IV History: colitis. Pain. Comparison Study: None Technique: Multidetector spiral CT of the abdomen was performed from lung bases to pubic symphysis. Imaging was performed without IV contrast. Axial, coronal and sagittal multiplanar reformats were obtained from the axial data set by the technologist. Radiation Dose : 1. Abdomen/Pelvis: CTDIvol 14.09 mGy, DLP 890.72 mGy*cm. Findings: Evaluation of solid organs is limited due to lack of intravenous contrast use. Lung Bases: No acute or significant lung base finding. Normal heart size. No pleural or pericardial effusion. Liver: The liver is normal in size. No focal lesions. Gallbladder and Biliary Tree: Cholelithiasis noted without secondary findings of cholecystitis or biliary obstruction. Spleen: Unremarkable Pancreas: The pancreas is grossly normal in appearance. Adrenal Glands: Unremarkable Kidneys: Obstructing distal right ureteric calculus just proximal to the UVJ measuring 6 mm resulting in [id number] hydronephrosis and hydroureter. Bladder: Grossly unremarkable for degree of distention. Bowel: The stomach is grossly normal in appearance. Small bowel and colon are normal in caliber and distribution. The appendix is not visualized; however, no secondary findings of acute appendicitis identified. Ascites: Absent Lymphadenopathy: No mesenteric, retroperitoneal or periportal lymphadenopathy. Abdominal Wall and Mesentery: Unremarkable. Vasculature: The visualized abdominal aorta is normal in size and caliber. Evaluation of abdominal and pelvic vessels is limited due to lack of intravenous contrast. Pelvic Organs: Unremarkable Musculoskeletal: No aggressive focal bony lesions, acute fractures or dislocation. IMPRESSION: Obstructing distal right ureteric calculus measuring 6 mm resulting in mild to moderate hydronephrosis and hydroureter. Radiation optimization: All CT scans at this facility use at least one of these dose optimization techniques: automated exposure control mA and/or kV adjustment per patient size (includes targeted exams where dose is matched to clinical indication) or iterative reconstruction. ATED BY: ARTURO TIM MD DICTATED DATE/TIME: 05/02/25 112 SIGNED BY: ARTURO TIM MD SIGNED DATE/TIME: 05/02/25 112 CC: Labs Test 05/02/25 11:49 05/02/25 11:03 Range/Units Urine Color Light-yellow Yellow Urine Clarity Clear Clear Urine pH 6.0 5.0-9.0 Urine Specific [place] 1.018 1.001-1.035 Urine Protein Trace H Negative Urine Ketones Negative Negative Urine Blood 1+ H Negative /uL Urine Nitrite Negative Negative Urine Bilirubin Negative Negative Urine Urobilinogen Normal Negative mg/dL Urine Leukocyte Esterase Trace Negative /uL Urine RBC 4 0 - 3 /hpf Urine Microscopic WBC 26 H 0-3 /HPF Urine Squamous Epithelial Cells Few <5 /hpf Urine Bacteria None seen None Seen /hpf Urine Glucose 4+ H Normal mg/dL White Blood Count 10.3 4.4-10.8 10^3/uL Red Blood Count 5.07 4.5-5.90 10^6/uL Hemoglobin 14.6 13.5-17.5 g/dL Hematocrit 44.7 41.0-53.0 % Mean Corpuscular Volume 88.0 80.0-100.0 fL Mean Corpuscular Hemoglobin 28.7 28.0-32.0 pg Mean Corpuscular Hemoglobin Concent 32.6 32.0-36.0 g/dL Red Cell Distribution Width 13.9 11.8-14.3 % Platelet Count 188 140-450 10^3/uL Mean Platelet Volume 8.5 6.9-10.8 fL Neutrophils (%) (Auto) 84.0 H 37.0-80.0 % Lymphocytes (%) (Auto) 7.8 L 10.0-50.0 % Monocytes (%) (Auto) 4.9 0.0-12.0 % Eosinophils (%) (Auto) 2.8 0.0-7.0 % Basophils (%) (Auto) 0.5 0.0-2.0 % Neutrophils # (Auto) 8.7 H 1.6-8.6 10 ^3/uL Lymphocytes # (Auto) 0.8 0.4-5.4 10 ^3/uL Monocytes # (Auto) 0.5 0-1.3 10 ^3/uL Eosinophils # (Auto) 0.3 0-0.8 10 ^3/uL Basophils # (Auto) 0 0-0.2 10 ^3/uL Nucleated Red Blood Cells 0.0 % Sodium Level 142 136-145 mmol/L Potassium Level 4.4 3.5-5.1 mmol/L Chloride Level 107 98-107 mmol/L Carbon Dioxide Level 26 20-31 mmol/L Anion Gap 9 5-15 Blood Urea Nitrogen 25 H 9-23 mg/dL Creatinine 1.84 H 0.700-1.30 mg/dL Glomerular Filtration Rate Calc 43 >90 mL/min BUN/Creatinine Ratio 13.6 10.0-20.0 Serum Glucose 233 H 74-106 mg/dL Hemoglobin A1c 6.3 H <5.7 % A1C Calcium Level 9.3 8.7-10.4 mg/dL Total Bilirubin 0.8 0.2-1.0 mg/dL Aspartate Amino Transferase (AST) 17 13-40 U/L Alanine Aminotransferase (ALT) 14 7-40 U/L Alkaline Phosphatase 84 46-116 U/L B-Type Natriuretic Peptide 109.09 0-100 pg/mL Total Protein 7.8 5.7-8.2 g/dL Albumin 4.2 3.2-4.8 g/dL Thyroid Stimulating Hormone (TSH) 0.97 0.55-4.78 uIU/mL Assessment/Plan Problem List: (1) Hydronephrosis with obstructing calculus Plan expulsive measures pain control renal US to check for jets Plan discussed with: Patient, Other CHARLIE BRITT [employer] May 02, 2025 18:27
[2025-05-02] MEDS: TAMSULOSIN HYDROCHLORIDE 0.4 MG CAP PO SCH (18:41)
[2025-05-02 18:44] VITALS: PULSE 79; RESP 18; O2SAT 98
[2025-05-02 18:52] LABS: INR 1.08 (0.9-1.15); Prothrombin Time 11.4 sec (9.3-11.8)
[2025-05-02 21:00] VITALS: BP 152/93; PULSE 64; RESP 17; TEMP 97.4; O2SAT 94
[2025-05-02 22:01] LABS: Opiate Scree,Urine Neg (NEGATIVE)
[2025-05-02 22:20] LABS: Amphetamine Screen, Urine Neg (NEGATIVE); Barbiturate Scree,Urine Neg (NEGATIVE); Benzodiazephine Screen, Urine Neg (NEGATIVE); Cannabinoid Screen, Urine Neg (NEGATIVE); Cocaine Screen, Urine Neg (NEGATIVE); Phencyclidine Screen, Urine Neg (NEGATIVE)
[2025-05-03] MEDS: ACETAMINOPHEN 325 MG TAB PO PRN (00:22)
[2025-05-03 00:40] VITALS: BP 152/86; PULSE 73; RESP 19; TEMP 98.6; O2SAT 95
[2025-05-03 05:00] VITALS: BP 149/89; PULSE 59; RESP 17; TEMP 97.6; O2SAT 95
[2025-05-03 06:44] LABS: Hematocrit 39.2 % (41.0-53.0); Hemoglobin 13.0 g/dL (13.5-17.5); Mean Corpuscular Hemoglobin 29.1 pg (28.0-32.0); Mean Corpuscular Volume 87.9 fL (80.0-100.0); Nucleated Red Blood Cells % 0.0 %
[2025-05-03 07:04] LABS: Alanine Aminotransferase 20 U/L (7-40); Alkaline Phosphatase 77 U/L (46-116); Anion Gap 11 (5-15); BUN/Creatinine Ratio 17.4 (10.0-20.0); Carbon Dioxide 22 mmol/L (20-31); Potassium 4.5 mmol/L (3.5-5.1); Sodium 145 mmol/L (136-145); Total Protein 6.4 g/dL (5.7-8.2)
[2025-05-03 07:05] LABS: Albumin 3.5 g/dL (3.2-4.8); Bilirubin, Total 0.5 mg/dL (0.2-1.0)
[2025-05-03 07:08] LABS: Blood Urea Nitrogen 29 mg/dL (9-23); Calcium 8.4 mg/dL (8.7-10.4); Chloride 112 mmol/L (98-107); Glucose 131 mg/dL (74-106)
[2025-05-03 08:55] VITALS: BP 135/74; PULSE 60; RESP 20; TEMP 98.4; O2SAT 95
[2025-05-03] MEDS: HYDROcodone-ACET 5/325MG TAB PO PRN (10:08)
[2025-05-03] MEDS: ENOXAPARIN SOD 30 MG/0.3 ML SYRINGE SC SCH (10:12)
[2025-05-03] MEDS: ONDANSETRON HCL 4 MG/2 ML VIAL IV PRN (10:16)
[2025-05-03 12:46] VITALS: BP 145/88; PULSE 64; RESP 19; TEMP 98.3; O2SAT 95
[2025-05-03 16:27] VITALS: BP 167/92; PULSE 80; RESP 18; TEMP 98; O2SAT 98
--- NOTE | 2025-05-03 18:19 | DVH ---
CLINICAL HISTORY: hydronephrosis, check jets TECHNIQUE: Complete ultrasound exam of the kidneys and bladder was performed. COMPARISON: None FINDINGS: The right kidney has normal echogenicity and measures 10 cm. There is no focal parenchymal abnormalit y or evidence for stone. There is moderate hydronephrosis. The left kidney has normal echogenicity and measures 11.9 cm. There is no focal parenchymal abnormal ity or evidence for stone. There is no hydronephrosis. The bladder demonstrates no right ureteral jet. IMPRESSION: Moderate right hydronephrosis with no right ureteral jet seen.
[2025-05-03 21:00] VITALS: BP 144/88; PULSE 60; RESP 18; TEMP 98.4; O2SAT 93
[2025-05-03] MEDS: ATORVASTATIN 20 MG TAB PO SCH (21:45)
[2025-05-03] MEDS: CARVEDILOL 12.5 MG TAB PO SCH (21:45)
[2025-05-03] MEDS: SACUBITRIL-VALSARTAN 24mg/26mg TAB PO SCH (21:45)
[2025-05-04] VITALS (9 sets, daily range): BP systolic 128–164; BP diastolic 77–98; PULSE 60–72; RESP 13–19; TEMP 97.6–98.7; O2SAT 93–99
[2025-05-04 06:33] LABS: Hematocrit 37.7 % (41.0-53.0); Hemoglobin 12.6 g/dL (13.5-17.5); Mean Corpuscular Hemoglobin 29.1 pg (28.0-32.0); Mean Corpuscular Volume 87.1 fL (80.0-100.0); Nucleated Red Blood Cells % 0.0 %
[2025-05-04 07:23] LABS: Anion Gap 9 (5-15)
[2025-05-04 07:28] LABS: Calcium 8.3 mg/dL (8.7-10.4); Carbon Dioxide 22 mmol/L (20-31); Chloride 111 mmol/L (98-107); Potassium 4.4 mmol/L (3.5-5.1); Sodium 142 mmol/L (136-145)
[2025-05-04 07:29] LABS: BUN/Creatinine Ratio 14.0 (10.0-20.0); Glucose 104 mg/dL (74-106)
[2025-05-04 07:30] LABS: Blood Urea Nitrogen 25 mg/dL (9-23)
[2025-05-04] MEDS: CIPROFLOXACIN 400MG/200ML 200 ML IV ONE (08:20)
[2025-05-04] MEDS: IOHEXOL 300 MG/ML 100ML BOTTLE IJ ONE (09:03)
[2025-05-04] MEDS ORDERED: KETAMINE 50mg/ML 1ml syringe ONE (09:15)
[2025-05-04] MEDS ORDERED: fentaNYL CITRATE 100 MCG/2 ML VL ONE (09:15)
[2025-05-04] MEDS ORDERED: ONDANSETRON HCL 4 MG/2 ML VIAL ONE (09:16)
[2025-05-04] MEDS ORDERED: MIDAZOLAM HCL 2MG/2ML 2ml VIAL (1mg/ml) ONE (09:16)
[2025-05-04] MEDS ORDERED: HYDROCORTISONE SOD SUCC 100 MG/2ML INJ VIAL ONE (09:16)
[2025-05-04] MEDS ORDERED: GLYCOPYRROLATE 0.2 MG/ML 1ML VIAL ONE (09:16)
[2025-05-04] MEDS ORDERED: LIDOCAINE 2% (LOCAL ANESTH.) PF 5ml SDV ONE (09:16)
[2025-05-04] MEDS ORDERED: PROPOFOL 10 MG/ML 20 ML IV ONE (09:16)
[2025-05-04] MEDS: ENOXAPARIN SOD 40 MG/0.4 ML SYRINGE SC SCH (10:00)
[2025-05-04] MEDS ORDERED: HYDROmorphone HCL 2 MG/ML VL/or syr IV PRN (10:15)
[2025-05-04] MEDS: ACETAMINOPHEN IV 1000 MG/100ML (10MG/ML) IV ONE (10:26)
[2025-05-04] MEDS: ACETAMINOPHEN IV 100 ML IV ONE (10:28)
--- NOTE | 2025-05-04 10:51 | DVH ---
FLUOROSCOPY TIME: 15 seconds TECHNIQUE: Intraoperative radiographs of the abdomen were obtained. COMPARISON: XY KUB ABDOMEN SINGLE VIEW on DOS: 05/04/25, US KIDNEY on DOS: 05/03/25, CT CT AB PEL WO CON-NO ORAL OR IV on DOS: 05/02/25, CT CHEST ABD PELVIS WO CONTRAS on DOS: 01/10/21 FINDINGS: Refer to intraoperative report for further evaluation. IMPRESSION: Refer to intraoperative report for further evaluation.
[2025-05-04 10:57] LABS: Hepatitis B Surface Antigen Negative (Negative)
--- NOTE | 2025-05-04 11:09 | DVHPNRES ---
Progress Note Date Seen: May 03, 2025 Resident Creating Document: FRACISCO MURPHY RESIDENT Medical Necessity Reason Pt with a Central, PICC or Fol: No Subjective Review of Systems Babak Eaton is a 54-year old male with past medical history of hypertension, CKD who presented to the ER with the chief complaint of right-sided back pain and right-sided abdominal pain. Patient mentions he has had the pain for the last 3 days, on and off, describes it as sharp, 8/10 in intensity, not relieved with pain medication. Pain was associated with nausea and 1 episode of vomiting 2 days back. The patient also had decreased urine output and increased frequency and urgency, but no burning or pain with micturition. Patient also mentions he has a history of kidney stones multiple times in the past. CT abdomen was done which showed Obstructing distal right ureteric calculus measuring 6 mm resulting in mild to moderate hydronephrosis and hydroureter. Past medical history: CKD, hypertension, pacemaker placement, PCI with 2 stents, CKD Past surgical history: Pacemaker placement 4 years ago, PCI with 2 stents placed 4 years ago Social & Personal history: Lives at home with family Smoking: Denies Alcohol: Remote history of occasional consumption Drugs: Denies Allergies: Ibuprofen Cardiovascular: CAD, HTN, [place] Renal/: Chronic renal failure, UTI Smoke: No ALCOHOL: none Drugs: None Lives: with Family Patient seen and examined at bedside. Patient is alert and oriented to time, place person and responding to all questions. Eyes: No Pain, No Vision change, No Conjunctivae inflammation, No Eyelid inflammation, No Redness ENT: No Ear pain, No Ear discharge, No Nose pain, No Nose discharge, No Nose congestion, No Mouth pain, No Mouth swelling, No Throat pain, No Throat swelling Cardiovascular: No Chest Pain, No Palpitations, No Orthopnea, No Paroxysmal No Dyspnea, No Edema, No Lt Headedness Respiratory: No Cough, No Dry, No Shortness of breath, No SOB with exertion, No Wheezing, No Hemoptysis, No Pleuritic Pain, No Sputum Gastrointestinal: No Nausea, No Vomiting, No Abdominal Pain, No Diarrhea, No Constipation, No Melena, No Hematochezia Genitourinary: No Dysuria, No Frequency, No Incontinence, No Hematuria, No Retention Allergies: Coded Allergies: Ibuprofen (Unverified Allergy, Unknown, 01/08/21) 05/03/25- The patient was seen at bedside today. All labs and charts were reviewed. Patient complained of intermittent severe pain in the right flank. [place] was added to the regimen for pain management. Patient has been recommended to strain urine. His home medications were reconciled. We are pending evaluation by Urology. Objective vital signs Vital Sign Date Time Temp Pulse Resp B/P (MAP) Pulse Ox O2 Delivery O2 Flow Rate FiO2 05/03/25 08:55 98.4 60 20 135/74 (94) 95 98.4 05/02/25 20:00 Room Air* 0 21 Total Intake and Output 05/02/25 05/02/25 05/03/25 15:00 23:00 07:00 Intake Total 325 ml Balance 325 ml medications Current Medications Medications Dose Ordered Sig/Andi Route Start Time Stop Time Status Last Admin Dose Admin Ondansetron HCl 4 mg Q4HP PRN IV 05/02/25 14:15 05/03/25 10:16 4 MG Enoxaparin Sodium 30 mg DAILY SC 05/03/25 10:00 05/03/25 10:12 30 MG Acetaminophen 650 mg Q6HP PRN PO 05/02/25 14:15 05/03/25 00:22 650 MG Ceftriaxone Sodium 50 ml @ 100 mls/hr DAILY@09 IV 05/03/25 09:00 05/03/25 09:00 100 MLS/HR Sodium Chloride 1,000 ml @ 75 mls/hr [id number] IV 05/02/25 14:30 05/03/25 05:31 75 MLS/HR Tamsulosin HCl 0.4 mg QPM PO 05/02/25 18:00 05/02/25 18:41 0.4 MG Acetaminophen/ Hydrocodone Bitart 1 tab Q4HPRN PRN PO 05/03/25 09:00 05/03/25 10:08 1 TAB Examination General Appearance: Cooperative. Well developed. Well nourished. NAD Head Exam: Normal inspection Neck Exam: Normal inspection. Non-tender. Normal alignment Pulmonary/Respiratory: Chest non-tender. Clear bilateral breath sounds, no crackles, no wheezing. Cardiovascular/Chest: Regular rate and rhythm. No murmurs. No JVD. Peripheral Pulses: 2+ Radial (R). 2+ Radial (L). 2+ Pedal (R). 2+ Pedal (L) Abdominal Exam: Normal bowel sounds. Soft. normal abdomen, no visible veins, mild tenderness in right flank , No hepatospenomegaly. No masses Ankle Exam: Negative ankle edema Lower extremities: Negative lower extremity edema Neuro/Mental Status: A&O x4. Coherent. Thoughts/Psych: Normal thought pattern. Appropriate mood and affect. Good judgement and insight Skin Exam: Normal inspection. Normal color. Warm. Dry laboratory and microbiology Laboratory Tests 05/03/25 05:50 Test 05/03/25 05:50 Range/Units Serum Glucose 131 #H 74-106 mg/dL Labs and/or images reviewed: Labs reviewed by me, Image(s) reviewed by me Problem List/Assessment/Plan Problem List/Assessment/Plan Acute urinary obstruction with hydronephrosis, likely due to ureteric calculus Acute right flank pain, likely due to above Acute UTI -CT abdomen showed Obstructing distal right ureteric calculus measuring 6 mm resulting in mild to moderate hydronephrosis and hydroureter. -IV fluids at 75ml/hr -urology consult placed -ceftriaxone 1gm iv daily -tamsulosin 0.4mg po qpm ERICA on CKD, stage III -creatinine today is -continue IV fluids -avoid nephrotoxic agents -monitor BNP Prediabetes, with HbA1c 6.3 -patient counselled extensively on healthy lifestyle modifications and diet control -monitor PUD prophylaxis: Protonix 40 mg IV daily DVT prophylaxis: Not indicated Goals of care: Full code, discussed for >23 minutes Plan discussed with patient Plan discussed with Dr Bosch Plan discussed with: Patient My Orders My Orders Orders - FRACISCO MURPHY RESIDENT Procedure Category Date Status Time Admit ADMIT 05/02/25 Transmitted 14:08 Allergies NELLIE 05/02/25 In Process 14:08 Code Status CODE 05/02/25 Transmitted 14:08 Ondansetron Hcl PHA 05/02/25 In Process (Zofran) 14:15 Condition: Unstable NELLIE 05/02/25 In Process 14:08 Enoxaparin Sodium PHA 05/03/25 In Process (Lovenox) 10:00 Acetaminophen Tablet PHA 05/02/25 In Process (Tylenol Tablet) 14:15 Chest Xray 1 View XY 05/02/25 Resulted 14:14 Ceftriaxone 1gm/50ml PHA 05/03/25 In Process (Rocephin) 09:00 Sodium Chloride 0.9% PHA 05/02/25 In Process 14:30 Tamsulosin PHA 05/02/25 In Process Hydrochloride (Flomax) 18:00 * Urology Consult CONS 05/02/25 Transmitted 14:32 Regular Diet DIET 05/02/25 Transmitted Dinner Hepatitis B Surface LAB 05/03/25 In Process Antigen 04:00 Hepatitis C Antibody LAB 05/03/25 In Process 04:00 Hydrocodone-Acet PHA 05/03/25 In Process 5/325mg Tab ([place] 09:00 Date of Service: May 03, 2025 Billing Provider: KACY BOSCH MD Common Visit Codes: [id number] INP/OBS CARE(HIGH) Date of Service: May 03, 2025 Billing Provider: KACY BOSCH MD Common Visit Codes: [id number] INP/OBS CARE(HIGH) FRACISCO MURPHY RESIDENT May 03, 2025 11:42 KACY BOSCH MD May 03, 2025 22:37
[2025-05-04 11:20] LABS: Hepatitis C Antibody Negative (Negative)
--- NOTE | 2025-05-04 11:25 | DVHPN2 ---
Progress Note - Dictate Date Seen: May 03, 2025 Medical Necessity Reason Pt with a Central, PICC or Fol: No vital signs Vital Sign Date Time Temp Pulse Resp B/P (MAP) Pulse Ox O2 Delivery O2 Flow Rate FiO2 05/03/25 16:27 98.0 80 18 167/92 (117) 98 98.0 05/03/25 08:00 Room Air* 0 21 Total Intake and Output 05/02/25 05/02/25 05/03/25 15:00 23:00 07:00 Intake Total 325 ml Balance 325 ml medications Current Medications Medications Dose Ordered Sig/Andi Route Start Time Stop Time Status Last Admin Dose Admin Ondansetron HCl 4 mg Q4HP PRN IV 05/02/25 14:15 05/03/25 18:57 4 MG Acetaminophen 650 mg Q6HP PRN PO 05/02/25 14:15 05/03/25 00:22 650 MG Ceftriaxone Sodium 50 ml @ 100 mls/hr DAILY@09 IV 05/03/25 09:00 05/03/25 09:00 100 MLS/HR Sodium Chloride 1,000 ml @ 75 mls/hr [id number] IV 05/02/25 14:30 05/03/25 17:10 75 MLS/HR Tamsulosin HCl 0.4 mg QPM PO 05/02/25 18:00 05/03/25 17:17 0.4 MG Acetaminophen/ Hydrocodone Bitart 1 tab Q4HPRN PRN PO 05/03/25 09:00 05/03/25 17:17 1 TAB Allopurinol 100 mg DAILY PO 05/04/25 10:00 Aspirin 81 mg DAILY PO 05/04/25 10:00 Atorvastatin Calcium 20 mg HS PO 05/03/25 22:00 Carvedilol 12.5 mg Q12HR PO 05/03/25 22:00 Gabapentin 300 mg DAILY PO 05/04/25 10:00 Sacubitril/ Valsartan 1 tab BID PO 05/03/25 22:00 Enoxaparin Sodium 40 mg DAILY SC 05/04/25 10:00 objective pt on aspirin - not able to proceed with PCN via IR service US shows absent ureteral jet on the right elevated Cr but improved. laboratory and microbiology Laboratory Tests 05/03/25 05:50 Test 05/03/25 05:50 Range/Units Serum Glucose 131 #H 74-106 mg/dL Assessment/Plan NPO after midnight consent for cystoscopy with right ureteral stent placement and right ureteroscopic laser lithotripsy Problems(with codes): (1) Kidney stone (2) Acute abdominal pain (3) Hydronephrosis with obstructing calculus Plan discussed with: CHARLIE Farr NP May 03, 2025 20:27
--- NOTE | 2025-05-04 11:43 | DVHNC2 ---
Procedure - OPERATIVE REPORT Pre-op. Diagnosis: Flank pain - RIGHT Hydronephrosis - RIGHT Hydroureter - RIGHT Right distal ureteral stone, 6 mm Post-op. Diagnosis: Same as pre-op diagnosis Operation: Cystoscopy with retrograde pyelogram - RIGHT Cystoscopy with ureteral stent placement - [address] - RIGHT Anesthesia: General/MAC Indications: Patient presented with symptomatic right hydroureteronephrosis down to the UVJ. The indications, risks, complications, alternatives and benefits of cystoscopy with ureteral stent placement are discussed with patient. All questions were encouraged and answered. Patient is aware of risks/complications including but not limited to infection, bleeding, persistent pain, possible ureteral injury requiring additional surgical management. Patient is also aware of alternatives of this procedure such as conservative management, or right nephrostomy tube placement. She elected to proceed. Details of Procedure: After obtaining the consent, patient is taken to OR suite and underwent general anesthesia. With the patient positioned in the lithotomy, the area of the genitalia prepped and draped in usual sterile fashion. Next, a 22 F Cystoscope is used to access the urethra and bladder. No FB, tumors or stones are seen in the bladder. The right ureteric orifice is cannulated with a 6Fr open ended catheter and retrograde pyelogram is performed. Under Fluoroscopic guidance, retrograde pyelogram was performed. 15 cc of 30% renogram was injected. There was distal ureteral filling defect identifed c/w stone 5-7 mm. Next a guidewire is placed into the right ureter and a [id number] ureteral stent is placed appropriately under fluoroscopy Bladder is decompressed with Parks catheter and cystoscope is removed in entirety. Patient is awaken and moved to in stable condition. Specimens: None Complications: None Findings: Mild hydroureter, no ureteral filling defect or renal filling defect noted, no bladder lesion noted Notes: Needs cardiac clearance Right URSLL JOSE DENNIS MD May 04, 2025 10:10
[2025-05-04] MEDS: ALLOPURINOL 100 MG TAB PO SCH (12:32)
[2025-05-04] MEDS: GABAPENTIN 300 MG CAP PO SCH (12:32)
--- NOTE | 2025-05-04 14:31 | DVHPNRES ---
Progress Note Date Seen: May 04, 2025 Resident Creating Document: FRACISCO MURPHY RESIDENT Medical Necessity Reason Pt with a Central, PICC or Fol: No Subjective Review of Systems Babak Eaton is a 54-year old male with past medical history of hypertension, CKD who presented to the ER with the chief complaint of right-sided back pain and right-sided abdominal pain. Patient mentions he has had the pain for the last 3 days, on and off, describes it as sharp, 8/10 in intensity, not relieved with pain medication. Pain was associated with nausea and 1 episode of vomiting 2 days back. The patient also had decreased urine output and increased frequency and urgency, but no burning or pain with micturition. Patient also mentions he has a history of kidney stones multiple times in the past. CT abdomen was done which showed Obstructing distal right ureteric calculus measuring 6 mm resulting in mild to moderate hydronephrosis and hydroureter. Past medical history: CKD, hypertension, pacemaker placement, PCI with 2 stents, CKD Past surgical history: Pacemaker placement 4 years ago, PCI with 2 stents placed 4 years ago Social & Personal history: Lives at home with family Smoking: Denies Alcohol: Remote history of occasional consumption Drugs: Denies Allergies: Ibuprofen Cardiovascular: CAD, HTN, MA Renal/: Chronic renal failure, UTI Smoke: No ALCOHOL: none Drugs: None Lives: with Family Patient seen and examined at bedside. Patient is alert and oriented to time, place person and responding to all questions. Eyes: No Pain, No Vision change, No Conjunctivae inflammation, No Eyelid inflammation, No Redness ENT: No Ear pain, No Ear discharge, No Nose pain, No Nose discharge, No Nose congestion, No Mouth pain, No Mouth swelling, No Throat pain, No Throat swelling Cardiovascular: No Chest Pain, No Palpitations, No Orthopnea, No Paroxysmal No Dyspnea, No Edema, No Lt Headedness Respiratory: No Cough, No Dry, No Shortness of breath, No SOB with exertion, No Wheezing, No Hemoptysis, No Pleuritic Pain, No Sputum Gastrointestinal: No Nausea, No Vomiting, No Abdominal Pain, No Diarrhea, No Constipation, No Melena, No Hematochezia Genitourinary: No Dysuria, No Frequency, No Incontinence, No Hematuria, No Retention Allergies: Coded Allergies: Ibuprofen (Unverified Allergy, Unknown, 01/08/21) 05/03/25- The patient was seen at bedside today. All labs and charts were reviewed. Patient complained of intermittent severe pain in the right flank. [place] was added to the regimen for pain management. Patient has been recommended to strain urine. His home medications were reconciled. We are pending evaluation by Urology. 05/04/25- The patient was seen at bedside today. Patient underwent cystoscopy and right ureteral stent placement and will follow up with urology for lithotripsy. Patient is pending Echo and cardiac clearance for the same. Objective vital signs Vital Sign Date Time Temp Pulse Resp B/P (MAP) Pulse Ox O2 Delivery O2 Flow Rate FiO2 05/04/25 13:00 97.6 60 18 164/98 (120) 94 97.6 05/04/25 10:54 Nasal Cannula 2.0 95 Total Intake and Output 05/03/25 05/03/25 05/04/25 15:00 23:00 07:00 Intake Total 1430 ml 200 ml Balance 1430 ml 200 ml medications Current Medications Medications Dose Ordered Sig/Andi Route Start Time Stop Time Status Last Admin Dose Admin Ondansetron HCl 4 mg Q4HP PRN IV 05/02/25 14:15 05/03/25 18:57 4 MG Acetaminophen 650 mg Q6HP PRN PO 05/02/25 14:15 05/03/25 00:22 650 MG Ceftriaxone Sodium 50 ml @ 100 mls/hr DAILY@09 IV 05/03/25 09:00 05/04/25 09:00 100 MLS/HR Tamsulosin HCl 0.4 mg QPM PO 05/02/25 18:00 05/03/25 17:17 0.4 MG Acetaminophen/ Hydrocodone Bitart 1 tab Q4HPRN PRN PO 05/03/25 09:00 05/04/25 12:30 1 TAB Allopurinol 100 mg DAILY PO 05/04/25 10:00 05/04/25 12:32 100 MG Aspirin 81 mg DAILY PO 05/04/25 10:00 Atorvastatin Calcium 20 mg HS PO 05/03/25 22:00 05/03/25 21:45 20 MG Carvedilol 12.5 mg Q12HR PO 05/03/25 22:00 05/04/25 12:32 12.5 MG Gabapentin 300 mg DAILY PO 05/04/25 10:00 05/04/25 12:32 300 MG Sacubitril/ Valsartan 1 tab BID PO 05/03/25 22:00 05/04/25 12:30 1 TAB Enoxaparin Sodium 40 mg DAILY SC 05/04/25 10:00 Examination General Appearance: Cooperative. Well developed. Well nourished. NAD. Parks catheter draining blood tinged urine. Head Exam: Normal inspection Neck Exam: Normal inspection. Non-tender. Normal alignment Pulmonary/Respiratory: Chest non-tender. Clear bilateral breath sounds, no crackles, no wheezing. Cardiovascular/Chest: Regular rate and rhythm. No murmurs. No JVD. Peripheral Pulses: 2+ Radial (R). 2+ Radial (L). 2+ Pedal (R). 2+ Pedal (L) Abdominal Exam: Normal bowel sounds. Soft. normal abdomen, no visible veins, mild tenderness in right flank , No hepatospenomegaly. No masses Ankle Exam: Negative ankle edema Lower extremities: Negative lower extremity edema Neuro/Mental Status: A&O x4. Coherent. Thoughts/Psych: Normal thought pattern. Appropriate mood and affect. Good judgement and insight Skin Exam: Normal inspection. Normal color. Warm. Dry laboratory and microbiology Laboratory Tests 05/04/25 04:51 Test 05/04/25 04:51 Range/Units Serum Glucose 104 74-106 mg/dL Labs and/or images reviewed: Labs reviewed by me, Image(s) reviewed by me Problem List/Assessment/Plan Problem List/Assessment/Plan Acute urinary obstruction with hydronephrosis, likely due to ureteric calculus Acute right flank pain, likely due to above Acute UTI -CT abdomen showed Obstructing distal right ureteric calculus measuring 6 mm resulting in mild to moderate hydronephrosis and hydroureter. -IV fluids at 75ml/hr -urology consult placed -ceftriaxone 1gm iv daily -tamsulosin 0.4mg po qpm ERICA on CKD, stage III -creatinine today is -continue IV fluids -avoid nephrotoxic agents -monitor BNP Prediabetes, with HbA1c 6.3 -patient counselled extensively on healthy lifestyle modifications and diet control -monitor PUD prophylaxis: Protonix 40 mg IV daily DVT prophylaxis: Not indicated Goals of care: Full code, discussed for >23 minutes Plan discussed with patient Plan discussed with Dr Jones Plan discussed with: Patient My Orders My Orders Orders - FRACISCO MURPHY RESIDENT Procedure Category Date Status Time Allopurinol Tablet PHA 05/04/25 In Process (Zyloprim Tablet) 10:00 Aspirin Tablet PHA 05/04/25 In Process 10:00 Atorvastatin (Lipitor) PHA 05/03/25 In Process 22:00 Carvedilol Tablet PHA 05/03/25 In Process (Coreg Tablet) 22:00 Gabapentin Capsule PHA 05/04/25 In Process (Neurontin Capsule) 10:00 Sacubitril-Valsartan PHA 05/03/25 In Process (Entresto 24-26 Mg 22:00 Enoxaparin Sodium PHA 05/04/25 In Process (Lovenox) 10:00 Date of Service: May 04, 2025 Billing Provider: KACY JONES MD Common Visit Codes: [id number] INP/OBS CARE(HIGH) FRACISCO MURPHY RESIDENT May 04, 2025 14:31 KACY JONES MD May 04, 2025 22:04
[2025-05-04 19:01] LABS: Hematocrit 41.8 % (41.0-53.0); Hemoglobin 13.9 g/dL (13.5-17.5); Mean Corpuscular Hemoglobin 29.1 pg (28.0-32.0); Mean Corpuscular Volume 87.7 fL (80.0-100.0); Nucleated Red Blood Cells % 0.0 %
[2025-05-04 19:09] LABS: Chloride 106 mmol/L (98-107); Potassium 4.9 mmol/L (3.5-5.1); Sodium 138 mmol/L (136-145)
[2025-05-04 19:10] LABS: Anion Gap 10 (5-15); Calcium 8.7 mg/dL (8.7-10.4); Carbon Dioxide 22 mmol/L (20-31)
[2025-05-04 19:15] LABS: BUN/Creatinine Ratio 13.7 (10.0-20.0)
[2025-05-04 19:17] LABS: Blood Urea Nitrogen 25 mg/dL (9-23); Glucose 319 mg/dL (74-106)
[2025-05-04] MEDS: POLYETHYLENE GLYCOL 17 GM PWDR PO ONE (19:59)
--- NOTE | 2025-05-04 23:10 | DVHINCON2 ---
Date of service: May 04, 2025 Referring Physician Fardious Reason for Consultation Cardiac clearance for right URSLL History of Present Illness This is a 54-year old male with a past medical history of hypertension, CKD who presented to the ED with a complaint of right-sided back pain and right-sided abdominal pain. Patient notes he has had the pain for the last 3 days, on and off, describes it as sharp, 8/10 in intensity, not relieved with pain medication. Pain was associated with nausea and 1 episode of vomiting 2 days back. The patient also had decreased urine output and increased frequency and urgency, but no burning or pain with micturition. Patient also mentions he has a history of kidney stones multiple times in the past. BUN 25, [place] 1.78, CT abdomen pelvis reveled obstructing distal right ureteric calculus measuring 6 mm resulting in mild to moderate hydronephrosis and hydroureter. Chest x-ray: NAD. Renal US shows moderate right hydronephrosis with no right ureteral jet seen. Patient was admitted to the hospital. I am asked to consult on this patient. Family History: Unknown Allergies: Coded Allergies: Ibuprofen (Verified Allergy, Severe, LIP SWELLING, 12/07/20) Home Meds Active Scripts Clopidogrel Bisulfate (Plavix) 75 Mg Tab, 1 TAB PO DAILY, #90 TAB 1 Refill Prov:JANE KASPER MD 12/13/20 Ipratropium Barnhart (Ipratropium Barnhart) 0.02 % [place], 0.5 % HHN TIDPRN PRN for 90 Days, #180 ML Prov:JANE KASPER MD 12/12/20 Levofloxacin Hemihydrate (LEVOFLOXACIN) 750 Mg Tab, 1 TAB PO DAILY, #7 TAB Prov:JANE KASPER MD 12/11/20 Enalapril Maleate (Enalapril Maleate) 2.5 Mg Tab, 2.5 MG PO DAILY for 30 Days, #30 TAB Prov:JANE KASPER MD 12/11/20 Aspirin (Aspirin Low Strength) 81 Mg Chw, 81 MG PO DAILY for 30 Days, #30 TAB.CHEW Prov:JANE KASPER MD 12/11/20 Reported Medications Megestrol Acetate (Megestrol Acetate) 40 Mg Tab, 1 TAB PO BID 01/09/21 Metoclopramide Hcl (Metoclopramide Hcl) 5 Mg Tab, 1 TAB PO QIDP 01/09/21 Gabapentin (Gabapentin) 300 Mg Cap, 1 CAP PO BID 01/09/21 Ondansetron HCl (Ondansetron Hydrochloride) 4 Mg Tab, 1 TAB TL Q6HP ondansetron odt 01/09/21 Tizanidine Hydrochloride (Tizanidine Hcl) 4 Mg Tab, 1 TAB PO QHSP 01/09/21 Carvedilol (Carvedilol) 12.5 Mg Tab, 1 TAB PO BID 12/06/20 Current Medications Current Medications Medications (Trade) Dose Ordered Sig/Andi Route PRN Reason Start Time Stop Time Status Last Admin Allopurinol (Zyloprim Tablet) 100 mg DAILY PO 05/04/25 10:00 05/04/25 12:32 Aspirin 81 mg DAILY PO 05/04/25 10:00 Atorvastatin Calcium (Lipitor) 20 mg HS PO 05/03/25 22:00 05/03/25 21:45 Carvedilol (Coreg Tablet) 12.5 mg Q12HR PO 05/03/25 22:00 05/04/25 12:32 Gabapentin (Neurontin Capsule) 300 mg DAILY PO 05/04/25 10:00 05/04/25 12:32 Sacubitril/ Valsartan (Entresto 24-26 Mg tab) 1 tab BID PO 05/03/25 22:00 05/04/25 12:30 Enoxaparin Sodium (Lovenox) 40 mg DAILY SC 05/04/25 10:00 Hydromorphone HCl (Dilaudid Injection) 0.25 mg Q10M PRN IV MODERATE PAIN (4-6 PAIN SCALE) 05/04/25 10:15 05/04/25 10:46 DC Review of Systems Constitutional: denies: chills, diaphoresis, fatigue, fever, malaise, sweats, weakness, others EENTM: denies: blurred vision, double vision, ear bleeding, ear discharge, ear drainage, ear pain, ear ringing, eye pain, eye redness, hearing loss, mouth pain, mouth swelling, nasal discharge, nose bleeding, nose congestion, nose pain, photophobia, tearing, throat pain, throat swelling, voice changes, others Respiratory: denies: cough, hemoptysis, orthopnea, SOB at rest, shortness of breath, SOB with excertion, stridor, wheezing, others Cardiovascular: denies: chest pain, dizzy spells, diaphoresis, Dyspnea on exertion, edema, irregular heart beat, left arm pain, lightheadedness, palpitations, PND, syncope, others Gastrointestinal: reports: abdominal pain; denies: abdomen distended, blood streaked bowels, constipated, diarrhea, dysphagia, difficulty swallowing, hematemesis, melena, nausea, poor appetite, poor fluid intake, rectal bleeding, rectal pain, vomiting, others Genitourinary: reports: flank pain; denies: burning, dysuria, frequency, hematuria, incontinence, penile discharge, penile sore, pain, testicle pain, testicle swelling, urgency, others Neurological: denies: dizziness, fainting, headache, left sided numbness, left sided weakness, numbness, paresthesia, pre-existing deficit, right sided numbness, right sided weakness, seizure, speech problems, tingling, tremors, weakness, others Musculoskeletal: denies: back pain, gout, joint pain, joint swelling, muscle pain, muscle stiffness, neck pain, others Integumetry: denies: bruises, change in color, change in hair/nails, dryness, laceration, lesions, lumps, rash, wounds, others Allergic/Immunocompromised: denies: Difficulty Healing, Frequent Infections, Hives, Itching, others Hematologic/Lymphatic: denies: anemia, blood clots, easy bleeding, easy bruising, swollen glands, others Endocrine: denies: excessive hunger, excessive sweating, excessive thirst, excessive urination, flushing, intolerance to cold, intolerance to heat, unexplained weight gain, unexplained weight loss, others Psychiatric: denies: anxiety, bipolar disorder, depression, hopeless, panic disorder, schizophrenia, sleepless, suicidal, others All Other Systems: Reviewed and Negative Vital Signs Vital Signs Date Time Temp Pulse Resp B/P (MAP) Pulse Ox O2 Delivery O2 Flow Rate FiO2 05/04/25 17:00 97.9 65 18 128/77 (94) 95 97.9 05/04/25 10:54 Nasal Cannula 2.0 95 Physical Exam GENERAL: Alert and oriented x 3. No acute distress. EYES: PERRL, EOMI. Anicteric. HENT: Moist mucous membranes. LUNGS: Clear to auscultation bilaterally. CARDIOVASCULAR: Regular rate and rhythm. ABDOMEN: Soft, nontender and nondistended. EXTREMITIES: No edema. NEUROLOGIC: No focal neurological deficits. SKIN: Warm, dry. Labs/Diagnostic Data Labs Test 05/04/25 04:51 05/03/25 05:50 05/02/25 17:51 05/02/25 11:49 Range/Units White Blood Count 9.3 4.4-10.8 10^3/uL Red Blood Count 4.32 L 4.5-5.90 10^6/uL Hemoglobin 12.6 L 13.5-17.5 g/dL Hematocrit 37.7 L 41.0-53.0 % Mean Corpuscular Volume 87.1 80.0-100.0 fL Mean Corpuscular Hemoglobin 29.1 28.0-32.0 pg Mean Corpuscular Hemoglobin Concent 33.4 32.0-36.0 g/dL Red Cell Distribution Width 13.6 11.8-14.3 % Platelet Count 180 140-450 10^3/uL Mean Platelet Volume 8.4 6.9-10.8 fL Neutrophils (%) (Auto) 71.2 37.0-80.0 % Lymphocytes (%) (Auto) 13.6 10.0-50.0 % Monocytes (%) (Auto) 9.9 0.0-12.0 % Eosinophils (%) (Auto) 4.6 0.0-7.0 % Basophils (%) (Auto) 0.7 0.0-2.0 % Neutrophils # (Auto) 6.7 1.6-8.6 10 ^3/uL Lymphocytes # (Auto) 1.3 0.4-5.4 10 ^3/uL Monocytes # (Auto) 0.9 0-1.3 10 ^3/uL Eosinophils # (Auto) 0.4 0-0.8 10 ^3/uL Basophils # (Auto) 0.1 0-0.2 10 ^3/uL Nucleated Red Blood Cells 0.0 % Sodium Level 142 136-145 mmol/L Potassium Level 4.4 3.5-5.1 mmol/L Chloride Level 111 H 98-107 mmol/L Carbon Dioxide Level 22 20-31 mmol/L Anion Gap 9 5-15 Blood Urea Nitrogen 25 H 9-23 mg/dL Creatinine 1.78 H 0.700-1.30 mg/dL Glomerular Filtration Rate Calc 44 >90 mL/min BUN/Creatinine Ratio 14.0 10.0-20.0 Serum Glucose 104 74-106 mg/dL Calcium Level 8.3 L 8.7-10.4 mg/dL Total Bilirubin 0.5 0.2-1.0 mg/dL Aspartate Amino Transferase (AST) 21 13-40 U/L Alanine Aminotransferase (ALT) 20 7-40 U/L Alkaline Phosphatase 77 46-116 U/L Total Protein 6.4 5.7-8.2 g/dL Albumin 3.5 3.2-4.8 g/dL Hepatitis B Surface Antigen Negative Negative Hepatitis C Antibody Negative Negative Prothrombin Time 11.4 9.3-11.8 sec Prothrombin Time INR 1.08 0.9-1.15 Urine Color Light-yellow Yellow Urine Clarity Clear Clear Urine pH 6.0 5.0-9.0 Urine Specific [place] 1.018 1.001-1.035 Urine Protein Trace H Negative Urine Ketones Negative Negative Urine Blood 1+ H Negative /uL Urine Nitrite Negative Negative Urine Bilirubin Negative Negative Urine Urobilinogen Normal Negative mg/dL Urine Leukocyte Esterase Trace Negative /uL Urine RBC 4 0 - 3 /hpf Urine Microscopic WBC 26 H 0-3 /HPF Urine Squamous Epithelial Cells Few <5 /hpf Urine Bacteria None seen None Seen /hpf Urine Glucose 4+ H Normal mg/dL Urine Opiates Screen Neg NEGATIVE Urine Fentanyl Screen Neg NEGATIVE Urine Barbiturates Screen Neg NEGATIVE Urine Phencyclidine Screen Neg NEGATIVE Urine Amphetamines Screen Neg NEGATIVE Urine Benzodiazepines Screen Neg NEGATIVE Urine Cocaine Screen Neg NEGATIVE Urine Cannabinoids Screen Neg NEGATIVE Test 05/02/25 11:03 Range/Units Hemoglobin A1c 6.3 H <5.7 % A1C B-Type Natriuretic Peptide 109.09 0-100 pg/mL Thyroid Stimulating Hormone (TSH) 0.97 0.55-4.78 uIU/mL Assessment Acute urinary obstruction with hydronephrosis. Acute right flank pain. Acute UTI. ERICA on CKD, stage III. Prediabetes. Plan/Recommendation I agree with your ongoing assessment and care of plan. Prabhakar for pain management. Aspirin, Lipitor. Coreg. IV antibiotics as ordered. DVT prophylactics. Entresto. Additional plan as per the hospital course. A total of 45 minutes was spent reviewing the patient record, examining the patient, making a diagnostic and therapeutic plan, discussing this plan with medical personnel, following up on diagnostic studies and following the patient for clinical stability excluding any and all procedures. At least 50% of this time was spent in direct, [id number] contact. Plan discussed with: Patient NELLIE JOHN MD May 04, 2025 17:50
[2025-05-05 01:00] VITALS: BP 128/80; PULSE 70; RESP 18; TEMP 98.4; O2SAT 97
[2025-05-05 05:00] VITALS: BP 155/90; PULSE 60; RESP 18; TEMP 98.2; O2SAT 95
[2025-05-05 08:00] VITALS: PULSE 62; RESP 18
[2025-05-05 08:40] VITALS: BP 152/95; PULSE 59; RESP 17; TEMP 98.2; O2SAT 94
[2025-05-05] MEDS ORDERED: TAMS0.4C39 PO (10:14)
[2025-05-05] MEDS ORDERED: CIPR500T4 PO (10:14)
[2025-05-05] MEDS: LACTULOSE 20Gm/30ML SOLN PO ONE (12:07)
[2025-05-05 13:00] VITALS: BP 151/94; PULSE 67; RESP 18; TEMP 97.7; O2SAT 95
--- NOTE | 2025-05-05 13:06 | DVHDSRES ---
Discharge Summary Date of Admission Resident Creating Document: ARMANDO KNOX RESIDENT May 02, 2025 at 14:08 Date of Discharge: May 05, 2025 Admitting Diagnosis Right-sided flank pain Wounds: No wounds present at this time Labs/Diagnostic Data: Laboratory Results Test 05/04/25 18:30 05/03/25 05:50 05/02/25 17:51 05/02/25 11:49 White Blood Count 8.4 10^3/uL (4.4-10.8) Red Blood Count 4.77 10^6/uL (4.5-5.90) Hemoglobin 13.9 g/dL (13.5-17.5) Hematocrit 41.8 % (41.0-53.0) Mean Corpuscular Volume 87.7 fL (80.0-100.0) Mean Corpuscular Hemoglobin 29.1 pg (28.0-32.0) Mean Corpuscular Hemoglobin Concent 33.2 g/dL (32.0-36.0) Red Cell Distribution Width 13.8 % (11.8-14.3) Platelet Count 207 10^3/uL (140-450) Mean Platelet Volume 8.3 fL (6.9-10.8) Neutrophils (%) (Auto) 87.4 % (37.0-80.0) Lymphocytes (%) (Auto) 7.6 % (10.0-50.0) Monocytes (%) (Auto) 4.5 % (0.0-12.0) Eosinophils (%) (Auto) 0.2 % (0.0-7.0) Basophils (%) (Auto) 0.3 % (0.0-2.0) Neutrophils # (Auto) 7.4 10 ^3/uL (1.6-8.6) Lymphocytes # (Auto) 0.6 10 ^3/uL (0.4-5.4) Monocytes # (Auto) 0.4 10 ^3/uL (0-1.3) Eosinophils # (Auto) 0 10 ^3/uL (0-0.8) Basophils # (Auto) 0 10 ^3/uL (0-0.2) Nucleated Red Blood Cells 0.0 % Sodium Level 138 mmol/L (136-145) Potassium Level 4.9 mmol/L (3.5-5.1) Chloride Level 106 mmol/L (98-107) Carbon Dioxide Level 22 mmol/L (20-31) Anion Gap 10 (5-15) Blood Urea Nitrogen 25 mg/dL (9-23) Creatinine 1.83 mg/dL (0.700-1.30) Glomerular Filtration Rate Calc 43 mL/min (>90) BUN/Creatinine Ratio 13.7 (10.0-20.0) Serum Glucose 319 mg/dL (74-106) Calcium Level 8.7 mg/dL (8.7-10.4) Total Bilirubin 0.5 mg/dL (0.2-1.0) Aspartate Amino Transferase (AST) 21 U/L (13-40) Alanine Aminotransferase (ALT) 20 U/L (7-40) Alkaline Phosphatase 77 U/L (46-116) Total Protein 6.4 g/dL (5.7-8.2) Albumin 3.5 g/dL (3.2-4.8) Hepatitis B Surface Antigen Negative (Negative) Hepatitis C Antibody Negative (Negative) Prothrombin Time 11.4 sec (9.3-11.8) Prothrombin Time INR 1.08 (0.9-1.15) Urine Color Light-yellow (Yellow) Urine Clarity Clear (Clear) Urine pH 6.0 (5.0-9.0) Urine Specific [place] 1.018 (1.001-1.035) Urine Protein Trace (Negative) Urine Ketones Negative (Negative) Urine Blood 1+ /uL (Negative) Urine Nitrite Negative (Negative) Urine Bilirubin Negative (Negative) Urine Urobilinogen Normal mg/dL (Negative) Urine Leukocyte Esterase Trace /uL (Negative) Urine RBC 4 /hpf (0 - 3) Urine Microscopic WBC 26 /HPF (0-3) Urine Squamous Epithelial Cells Few /hpf (<5) Urine Bacteria None seen /hpf (None Seen) Urine Glucose 4+ mg/dL (Normal) Urine Opiates Screen Neg (NEGATIVE) Urine Fentanyl Screen Neg (NEGATIVE) Urine Barbiturates Screen Neg (NEGATIVE) Urine Phencyclidine Screen Neg (NEGATIVE) Urine Amphetamines Screen Neg (NEGATIVE) Urine Benzodiazepines Screen Neg (NEGATIVE) Urine Cocaine Screen Neg (NEGATIVE) Urine Cannabinoids Screen Neg (NEGATIVE) Test 05/02/25 11:03 Hemoglobin A1c 6.3 % A1C (<5.7) B-Type Natriuretic Peptide 109.09 pg/mL (0-100) Thyroid Stimulating Hormone (TSH) 0.97 uIU/mL (0.55-4.78) Other Laboratory Tests 05/04/25 18:30 Brief Hx & Hospital Course: This is a 54-year old male with past medical history of hypertension, CKD who presented to the ER with the chief complaint of right-sided back pain and right- sided abdominal pain. Patient reported that he has had the pain for the last 3 days before coming to the ED, on and off, described it as sharp, 8/10 in intensity, not relieved with pain medication. Patient also reported that pain was associated with nausea and 1 episode of vomiting 2 days back before admission. The patient also had decreased urine output and increased frequency and urgency, but no burning or pain with micturition. Patient also mentioned that he has a history of kidney stones multiple times in the past. CT abdomen was done which showed Obstructing distal right ureteric calculus measuring 6 mm resulting in mild to moderate hydronephrosis and hydroureter. Urology was consulted. Urinary gomez catheter was placed and patient was started on IV fluids, tamsulosin 0.4mg daily and pain meds as well as restart home medications. Patient was taken by urology for right sided ureteroscopy with stent placement. stone was not removed but right sided lithotripsy will be performed and scheduled as outpatient. Urology requested cardiology clearance, echocardiogram was performed. Patient will be discharged on tamsulosin 0.4mg daily for 15 days and ciprofloxacin 500mg BID for 7 days. Gomez catheter was removed and patient was able to urinate without problems w/o hematuria. we explained the importance of following up with urology in 7 days for right sided lithotripsy. ROS Constitutional: Denies weight loss, fever and chills. HEENT: Denies changes in vision and hearing. Respiratory: Denies shortness of breath and cough Cardiovascular: Denies chest discomfort or palpitations GI: Denies abdominal pain, nausea, vomiting and diarrhea. : Denies dysuria and urinary frequency. Musculoskeletal: Denies myalgias and joint pain Skin: Denies rash and pruritus. Neurological: Denies dizziness, headache, vision or hearing problems Physical Examination General: Patient alert and oriented in person, place and time. Patient following commands. HEENT: Normocephalic, atraumatic, moist mucous membranes Respiratory/pulmonary: Clear lungs bilaterally, no associated crackles or wheezes. Cardiovascular: Normal heart sounds S1 and S2 with no associated murmurs Abdomen: Abdomen nondistended, there is no pain to palpation in any of the abdominal quadrants, no palpable masses. Extremities: There is no peripheral edema present at the lower extremities. Skin: No rashes or pruritus, there is no sacral edema present at this time. Neurological: Intact cranial nerves with no focal neurologic deficits Consults/Reason for consult Urology for right-sided ureterolithiasis 6 mm stone Operations or Procedures Exam: CT CT AB PEL WO CON-NO ORAL OR IV History: colitis. Pain. Comparison Study: None Technique: Multidetector spiral CT of the abdomen was performed from lung bases to pubic symphysis. Imaging was performed without IV contrast. Axial, coronal and sagittal multiplanar reformats were obtained from the axial data set by the technologist. Radiation Dose : 1. Abdomen/Pelvis: CTDIvol 14.09 mGy, DLP 890.72 mGy*cm. Findings: Evaluation of solid organs is limited due to lack of intravenous contrast use. Lung Bases: No acute or significant lung base finding. Normal heart size. No pleural or pericardial effusion. Liver: The liver is normal in size. No focal lesions. Gallbladder and Biliary Tree: Cholelithiasis noted without secondary findings of cholecystitis or biliary obstruction. Spleen: Unremarkable Pancreas: The pancreas is grossly normal in appearance. Adrenal Glands: Unremarkable Kidneys: Obstructing distal right ureteric calculus just proximal to the UVJ measuring 6 mm resulting in [id number] hydronephrosis and hydroureter. Bladder: Grossly unremarkable for degree of distention. Bowel: The stomach is grossly normal in appearance. Small bowel and colon are normal in caliber and distribution. The appendix is not visualized; however, no secondary findings of acute appendicitis identified. Ascites: Absent Lymphadenopathy: No mesenteric, retroperitoneal or periportal lymphadenopathy. Abdominal Wall and Mesentery: Unremarkable. Vasculature: The visualized abdominal aorta is normal in size and caliber. Evaluation of abdominal and pelvic vessels is limited due to lack of intravenous contrast. Pelvic Organs: Unremarkable Musculoskeletal: No aggressive focal bony lesions, acute fractures or dislocation. IMPRESSION: Obstructing distal right ureteric calculus measuring 6 mm resulting in mild to moderate hydronephrosis and hydroureter. EXAM: XY CHEST XRAY 1 VIEW Indication: sob Technique: Single frontal view of the chest was obtained Comparison: CHEST PORTABLE on DOS: 01/08/21 FINDINGS: Lines and Tubes: Cardiac pacemaker projects over left chest wall. Lungs: No focal consolidation. Pleura: No effusion. No pneumothorax. Cardiomediastinal contours: Unremarkable Bones: No acute osseous abnormality. IMPRESSION: No acute cardiopulmonary disease. CLINICAL HISTORY: hydronephrosis, check jets TECHNIQUE: Complete ultrasound exam of the kidneys and bladder was performed. COMPARISON: None FINDINGS: The right kidney has normal echogenicity and measures 10 cm. There is no focal parenchymal abnormality or evidence for stone. There is moderate hydronephrosis. The left kidney has normal echogenicity and measures 11.9 cm. There is no focal parenchymal abnormality or evidence for stone. There is no hydronephrosis. The bladder demonstrates no right ureteral jet. IMPRESSION: Moderate right hydronephrosis with no right ureteral jet seen. FLUOROSCOPY TIME: 15 seconds TECHNIQUE: Intraoperative radiographs of the abdomen were obtained. COMPARISON: XY KUB ABDOMEN SINGLE VIEW on DOS: 05/04/25, US KIDNEY on DOS: 05/03/25, CT CT AB PEL WO CON-NO ORAL OR IV on DOS: 05/02/25, CT CHEST ABD PELVIS WO CONTRAS on DOS: 01/10/21 FINDINGS: Refer to intraoperative report for further evaluation. IMPRESSION: Refer to intraoperative report for further evaluation. FLUOROSCOPY TIME: 15 seconds TECHNIQUE: Intraoperative radiographs of the abdomen were obtained. COMPARISON: XY KUB ABDOMEN SINGLE VIEW on DOS: 05/04/25, US KIDNEY on DOS: 05/03/25, CT CT AB PEL WO CON-NO ORAL OR IV on DOS: 05/02/25, CT CHEST ABD PELVIS WO CONTRAS on DOS: 01/10/21 FINDINGS: Refer to intraoperative report for further evaluation. IMPRESSION: Refer to intraoperative report for further evaluation. Condition at Discharge: Good Final Diagnosis/Problems List Acute urinary obstruction with hydronephrosis, likely due to ureteric calculus Acute right flank pain, likely due to above Acute UTI ERICA on CKD, stage III Prediabetes Discharge Disposition: Home Discharge Instruct/Medications Diet: Renal Activity: No Restrictions, As Tolerated Follow Up/Referral: F/U with urology as outpatient in 7 days for right sided lithotripsy F/U with his PCP in 1 week Medications: Tamsulosin 0.4mg daily for 15 days Ciprofloxacin 500mg po BID for 7 days Scheduled Aspirin (Aspirin Low Strength), 81 MG PO DAILY Carvedilol (Carvedilol), 1 TAB PO BID, (Reported) Ciprofloxacin Hcl (Ciprofloxacin Hcl), 1 TAB PO BID Clopidogrel Bisulfate (Plavix), 1 TAB PO DAILY Enalapril Maleate (Enalapril Maleate), 2.5 MG PO DAILY Gabapentin (Gabapentin), 1 CAP PO BID, (Reported) Levofloxacin Hemihydrate (Levofloxacin), 1 TAB PO DAILY Megestrol Acetate (Megestrol Acetate), 1 TAB PO BID, (Reported) Metoclopramide Hcl (Metoclopramide Hcl), 1 TAB PO QIDP, (Reported) Ondansetron HCl (Ondansetron Hydrochloride), 1 TAB TL Q6HP, (Reported) Tamsulosin Hcl (Tamsulosin Hcl), 1 CAP PO DAILY Tizanidine Hydrochloride (Tizanidine Hcl), 1 TAB PO QHSP, (Reported) Scheduled PRN Hydrocodone-Acetaminophen (Hydrocodone Bitartrate/AC 5-325 mg), 1 TAB PO Q6HPRN PRN Ipratropium [place] (Ipratropium [place]), 0.5 % HHN TIDPRN PRN Discharge Statement: "Patient was advised to return to the ER or call 911 if any headaches, dizziness, shortness of breath, chest pain, abdominal pain, bleeding, fevers, or worsening of medical condition. Patient was counseled about treatment plan, medications, possible side effects, patientverbalized understanding. All questions were answered to the best of my ability. This discharge took greater then 30 minutes in planning, reviewing documentation, counseling the patient, and discussing with other team members." ASSESSMENT ASSESSMENT Assessment Acute urinary obstruction with hydronephrosis, likely due to ureteric calculus Acute right flank pain, likely due to above Acute UTI ERICA on CKD, stage III Prediabetes Date of Service: May 05, 2025 Billing Provider: KACY JONES MD Common Visit Codes: 12338-FIY/OBS DISCH DAY >30min ARMANDO KNOX RESIDENT May 05, 2025 13:06 KACY JONES MD May 05, 2025 23:58
[2025-05-05] MEDS ORDERED: HYDR-4902 PO (14:23)
--- NOTE | 2025-05-05 21:55 | DVHSR ---
APPROVED REPORT EXAM: Two-dimensional and M-mode echocardiogram with Doppler and color Doppler. Blood Pressure: 152/95 mmHg INDICATION Cardiac Clearance Surgery/Intervention Pacemaker: DIMENSIONS LVDd4.7 (3.8-5.7cm)LA (2D)4.2 (1.9-4.0cm)Aortic Root3.2 (2.0-3.7cm) LVDs3.7 (2.5-4.0cm)LA (MM) (1.9-4.0cm)Aortic Cusp Exc2.0 (1.5-2.0cm) EF (%) 40.0 (55-70%)Rt. Atrium4.0 (1.9-4.0cm)Asc. Aorta4.0 cm Mitral Valve MitralMitral Stenosis E wave0.60m/sMV Mean GR.mmHg A wave0.90m/sMV Peak GR.mmHg E/A ratio0.72D MVAcm2 Aortic Valve Aortic ValveAortic Stenosis V10.80m/Shirley Mean GR.4mmHg V21.30m/Shirley Peak GR.7mmHg LVOT Diameter2.6 (1.8-2.4cm)Doppler AVA3.27cm2 Pulmonic Valve V20.60m/s Conclusion MILD LVH AND MILD LV DIASTOLIC DYSFUNCTION LV EF IS 55% AND IS NORMAL NORMAL VALVES SLIGHTLY DILATED LA NO EFFUSION
--- NOTE | 2025-05-05 22:59 | DVHPN2 ---
Progress Note - Dictate Date Seen: May 05, 2025 Medical Necessity Reason Pt with a Central, PICC or Fol: No Subjective Patient was seen and evaluated in follow up. Patient is s/p right cystoscopy with retrograde pyelogram, cystoscopy with ureteral stent placement - [address] Patient currently resting in bed, without any complaints. vital signs Vital Sign Date Time Temp Pulse Resp B/P (MAP) Pulse Ox O2 Delivery O2 Flow Rate FiO2 05/05/25 10:13 60 140/90 05/05/25 08:40 98.2 17 94 98.2 05/04/25 20:00 Room Air* 0 21 Total Intake and Output 05/04/25 05/04/25 05/05/25 15:00 23:00 07:00 Intake Total 350 ml 1150 ml 600 ml Output Total 350 ml 1200 ml Balance 350 ml 800 ml -600 ml medications Current Medications Medications Dose Ordered Sig/Andi Route Start Time Stop Time Status Last Admin Dose Admin Ondansetron HCl 4 mg Q4HP PRN IV 05/02/25 14:15 05/03/25 18:57 4 MG Acetaminophen 650 mg Q6HP PRN PO 05/02/25 14:15 05/03/25 00:22 650 MG Ceftriaxone Sodium 50 ml @ 100 mls/hr DAILY@09 IV 05/03/25 09:00 05/05/25 09:10 100 MLS/HR Tamsulosin HCl 0.4 mg QPM PO 05/02/25 18:00 05/04/25 18:00 0.4 MG Acetaminophen/ Hydrocodone Bitart 1 tab Q4HPRN PRN PO 05/03/25 09:00 05/04/25 12:30 1 TAB Allopurinol 100 mg DAILY PO 05/04/25 10:00 05/05/25 09:13 100 MG Aspirin 81 mg DAILY PO 05/04/25 10:00 Atorvastatin Calcium 20 mg HS PO 05/03/25 22:00 05/04/25 21:09 20 MG Carvedilol 12.5 mg Q12HR PO 05/03/25 22:00 05/05/25 09:13 12.5 MG Gabapentin 300 mg DAILY PO 05/04/25 10:00 05/05/25 09:13 300 MG Sacubitril/ Valsartan 1 tab BID PO 05/03/25 22:00 05/05/25 09:13 1 TAB Enoxaparin Sodium 40 mg DAILY SC 05/04/25 10:00 objective GENERAL: Alert and oriented x 3. No acute distress. EYES: PERRL, EOMI. Anicteric. HENT: Moist mucous membranes. LUNGS: Clear to auscultation bilaterally. CARDIOVASCULAR: Regular rate and rhythm. ABDOMEN: Soft, nontender and nondistended. EXTREMITIES: No edema. NEUROLOGIC: No focal neurological deficits. SKIN: Warm, dry. laboratory and microbiology Laboratory Tests 05/04/25 18:30 Test 05/04/25 18:30 Range/Units Serum Glucose 319 #H 74-106 mg/dL Problem List Acute urinary obstruction with hydronephrosis. Acute right flank pain. Acute UTI. ERICA on CKD, stage III. Prediabetes. Assessment/Plan Continued all current supportive medical care. Coreg. IV antibiotics as ordered. Entresto. Additional plan as per the hospital course. Dietary Evaluation Review Recommendations by RD: Dietary education by RD, Increase Calorie Intake, Protein Supplementation Comments: 1) Add 60g CCHO cardiac restriction to diet 2) Initiate Glucerna bid - encourage optimal PO intake 3) Refer to outpatient RD/CDCES for weight management and prediabetes counseling 4) Follow-up with urology, nephrology, and cardiology 5) Continue to monitor I&O, labs, and skin integrity Expected Outcomes/Goals: 1) appetite and labs to improve 2) gradual wt gain 3) f/u in 3-5 days Plan discussed with: Patient NELLIE JOHN MD May 05, 2025 12:22
== END 2025-05-05 15:50 | disposition home or self-care (01) | DRG 660 ==
LOC: ER 10:02 → OVERFLOW 14:08 → EDUNIT# 14:08 → CENTRAL 16:05
PROVIDERS: ADMIT Internal Medicine; ATTEND Internal Medicine
PROC: 0T768DZ Dilation of Right Ureter with Intraluminal Device, Via Natural or Artificial Opening Endoscopic (ICD-10-PCS; 2025-05-04)
PROC: BT1D1ZZ Fluoroscopy of Right Kidney, Ureter and Bladder using Low Osmolar Contrast (ICD-10-PCS; principal; 2025-05-04 09:19)
DX: N13.6 Pyonephrosis (principal); N20.2 Calculus of kidney with calculus of ureter; N17.9 Acute kidney failure, unspecified; Z79.02 Long term (current) use of antithrombotics/antiplatelets; N18.30 Chronic kidney disease, stage 3 unspecified; I12.9 Hypertensive chronic kidney disease with stage 1 through stage 4 chronic kidney disease, or unspecified chronic kidney disease; I25.10 Atherosclerotic heart disease of native coronary artery without angina pectoris; R73.03 Prediabetes; Z88.6 Allergy status to analgesic agent; Z95.0 Presence of cardiac pacemaker; Z79.899 Other long term (current) drug therapy; Z79.82 Long term (current) use of aspirin
CPT/HCPCS: 36415; 71045; 74018; 74176; 76000; 76775; 80048; 80053; 80307; 81001; 83036; 83880; 84443; 85025; 85610; 86803; 86850; 86900; 86901; 87340; 93306; 96374; G0378; J0131; J1885; J2003; J2250; J2405; J2704

== ENCOUNTER 2025-05-09 10:42 | Outpatient (CLI) | payer MEDICARE, MEDICAID ==
[~2025-05-09 10:42] MED LIST changes: +CIPR500T4 PO; +HYDR-4902 PO; +TAMS0.4C39 PO
[2025-05-09 10:57] LABS: Hematocrit 42.3 % (41.0-53.0); Hemoglobin 14.1 g/dL (13.5-17.5); Mean Corpuscular Hemoglobin 29.0 pg (28.0-32.0); Mean Corpuscular Volume 87.0 fL (80.0-100.0); Nucleated Red Blood Cells % 0.1 %
[2025-05-09 11:02] LABS: Urine Protein, UAD 1+ (Negative)
[2025-05-09 11:14] LABS: INR 1.13 (0.9-1.15); Partial Thromboplastin Time 30.8 SEC (24.5-34.5); Prothrombin Time 11.8 sec (9.3-11.8)
[2025-05-09 12:08] LABS: Alanine Aminotransferase 27 U/L (7-40); Albumin 4.3 g/dL (3.2-4.8); Alkaline Phosphatase 82 U/L (46-116); Anion Gap 10 (5-15); BUN/Creatinine Ratio 13.6 (10.0-20.0); Calcium 9.3 mg/dL (8.7-10.4); Carbon Dioxide 27 mmol/L (20-31); Chloride 105 mmol/L (98-107); Potassium 4.6 mmol/L (3.5-5.1); Sodium 142 mmol/L (136-145); Total Protein 8.0 g/dL (5.7-8.2)
[2025-05-09 12:09] LABS: Bilirubin, Total 0.6 mg/dL (0.2-1.0)
[2025-05-09 12:10] LABS: Blood Urea Nitrogen 29 mg/dL (9-23); Glucose 171 mg/dL (74-106)
== END 2025-05-09 17:00 | disposition home or self-care (01) ==
LOC: LAB 10:42
PROVIDERS: ATTEND Internal Medicine
DX: Z01.812 Encounter for preprocedural laboratory examination (principal); Z86.2 Personal history of diseases of the blood and blood-forming organs and certain disorders involving the immune mechanism; Z79.899 Other long term (current) drug therapy
CPT/HCPCS: 36415; 80053; 81001; 85025; 85610; 85730; 87086